=== PATIENT | female | born 1940 | race African-American/Black ===

== ENCOUNTER → 2016-05-24 | Outpatient (CLI) | payer OTHER ==
[2014-09-17 06:19] VITALS: BP 116/67
[~2016-05-24] MED LIST: ASCO500T2 PO; ASPI325T4 PO; CELE200C PO; CHOL100013 PO; FERR-26 PO; LISI1TAB7 PO; METF500T4 PO; MULT-460 PO; NIFE30TA17 PO; TRAM50TA PO; TRIA15OI9 TP; WARF5TAB7 PO
--- NOTE | 2016-05-24 10:11 | KCIC ---
PROCEDURE Complete renal ultrasound. HISTORY Renal failure. TECHNIQUE Real-time ultrasound imaging of the kidneys and the bladder is performed. COMPARISON None. FINDINGS Visualized abdominal aorta is normal in caliber, the proximal abdominal aorta is obscured. The IVC is patent. The bladder is not well distended, patient recently voided. Ureteral jets are not identified. The right kidney measures 9.7 cm in length as does the left kidney. Normal appearance of the kidneys. No hydronephrosis. Bilateral resistive indices are normal. IMPRESSION Atrophic kidneys. No hydronephrosis. Electronically signed by: Chidi Milner MD (May 24, 2016 10:10:08)
== END | disposition home or self-care (01) ==
LOC: KCIC US 08:43
PROVIDERS: ATTEND Internal Medicine Cardiovascular Disease
DX: N19 Unspecified kidney failure (principal); N26.1 Atrophy of kidney (terminal)
CPT/HCPCS: 76770

== ENCOUNTER → 2017-05-08 | Outpatient (CLI) | payer OTHER | END | disposition home or self-care (01) | LOC: US 15:00 | DX: I65.23 Occlusion and stenosis of bilateral carotid arteries (principal) | CPT/HCPCS: 93880 ==

== ENCOUNTER → 2018-05-28 | Outpatient (CLI) | payer OTHER ==
[2014-09-17 06:19] VITALS: BP 116/67
[~2018-05-28] MED LIST changes: -ASPI325T4 PO; +ASPI325T8 PO; -FERR-26 PO; +FERR325T14 PO; +METF500T16 PO; -METF500T4 PO; +WARF-31 PO; -WARF5TAB7 PO
--- NOTE | 2018-05-28 10:13 | CARD ---
MR#: [id number] Date of Study: 05/28/2018 Ordering Physician: NAINA OQUENDO, Referring Physician: NAINA OQUENDO, Tech: Meredith Marino [facility] APPROVED REPORT EXAM: Two-dimensional and M-mode echocardiogram with Doppler and color Doppler. Other Information Quality : AverageHR: 68bpm Rhythm : Atrial Fibrillation INDICATION CAD 2D DIMENSIONS RVDd2.8 (2.9-3.5cm)Left Atrium(2D)6.1 (1.6-4.0cm) IVSd1.1 (0.7-1.1cm)Aortic Root(2D)2.9 (2.0-3.7cm) LVDd4.5 (3.9-5.9cm)LVOT Diameter1.8 (1.8-2.4cm) PWd1.3 (0.7-1.1cm)LVDs3.1 (2.5-4.0cm) FS (%) 30.2 %SV52.3 ml LVEF(%)57.7 (>50%) M-Mode DIMENSIONS Left Atrium(MM)6.25 (2.5-4.0cm)Aortic Root3.02 (2.2-3.7cm) Aortic Valve AoV Peak Mikal.116.3cm/sAoV VTI21.3cm AO Peak GR.5.4mmHgLVOT Peak Mikal.71.9cm/s AO Mean GR.2mmHgAVA (VMAX)1.66cm2 RADHA (VTI)1.70cm2 Mitral Valve MV E Dmiwcizs697.1cm/sMV DECEL OPFM759pb MV A Sepnbqkh12.6cm/sE/A Ratio5.7 Pulmonary Valve PV Peak Ouyrcpbr52.7cm/s Tricuspid Valve TR P. Qkbswjar082mf/sRAP YXFYPJRK21jhKt TR Peak Gr.68iyHjBKCN28aoVi LEFT VENTRICLE The left ventricle is normal size. There is mild concentric left ventricular hypertrophy. The left ve ntricular systolic function is normal and the ejection fraction is within normal range. The Ejection Fraction is 55-60%. There is normal LV segmental wall motion. Tissue Doppler imaging reveals at least moderate left ventricular diastolic dysfunction. No left ventricle thrombus noted on this study. RIGHT VENTRICLE The right ventricle is normal size. There is normal right ventricular wall thickness. The right ventr icular systolic function is normal. ATRIA The left atrium is severely dilated. The right atrium is severely dilated. The interatrial septum is intact with no evidence for an atrial septal defect or patent foramen ovale as noted on 2-D or Dopple r imaging. AORTIC VALVE The aortic valve is mildly calcified. The aortic valve is trileaflet. Doppler and Color Flow revealed no significant aortic regurgitation. There is no significant aortic valvular stenosis. There is no a ortic valvular vegetation. MITRAL VALVE The mitral valve is thickened but opens well. There is no evidence of mitral valve prolapse. There is no mitral valve stenosis. Doppler and Color-flow revealed moderate mitral regurgitation. TRICUSPID VALVE The tricuspid valve is normal in structure and function. Doppler and Color Flow revealed mild to mode rate tricuspid regurgitation. There is moderate pulmonary hypertension. The PA pressure was estimated at 60 mmHg. There is no tricuspid valve prolapse or vegetation. There is no tricuspid valve stenosis . PULMONIC VALVE The pulmonary valve is normal in structure and function. Doppler and Color Flow revealed no pulmonic valvular regurgitation. There is no pulmonic valvular stenosis. GREAT VESSELS The aortic root is normal in size. The ascending aorta is normal in size. The IVC is dilated and uday apses <50% with inspiration. PERICARDIAL EFFUSION There is no evidence of significant pericardial effusion. Critical Notification Critical Value: No <Conclusion> The left ventricular systolic function is normal and the ejection fraction is within normal range. Th e Ejection Fraction is 55-60%. Severe biatrial enlargement with moderate concentric LVH and RVH suggestive of infiltrative disease v ersus severe diastolic dysfunction. Doppler and Color-flow revealed moderate mitral regurgitation. Doppler and Color Flow revealed mild to moderate tricuspid regurgitation. There is moderate pulmonary hypertension. The PA pressure was estimated at 60 mmHg. The IVC is dilated and collapses <50% with inspiration. Signed by : Naina Oquendo, Electronically Approved : 05/28/2018 10:12:41
--- NOTE | 2018-05-28 10:21 | RAD ---
MR#: [id number] Date of Study: 05/28/2018 Ordering Physician: NAINA OQUENDO, Referring Physician: NAINA OQUENDO, Tech: JOHN Mejia, RDMS, RTR APPROVED REPORT Patient Location: OUT-PATIENT Laterality:Bilateral Risk Factors Hypertension: Diabetes PAD Doppler Spectral Velocity Analysis Right Left pCCA 78/23 cm/spCCA 31/6 cm/s mCCA 69/17 cm/smCCA 24/7 cm/s dCCA 63/15 cm/sdCCA 26/5 cm/s ECA 70/ cm/sECA 95/ cm/s pICA 62/19 cm/spICA Maureen 69/23 cm/smICA dICA 68/24 cm/sdICA Vert. 47/ cm/sVert. 60/ cm/s ICA/CCA 0.88ICA/CCA Findings Murillo scale images of the right common, external and internal vessels demonstrates mild intimal hyperp lasia without significant obstructive plaque. Spectral waveforms in the ICA are within normal limits and demonstrate normal ICA/CCA ratios. The right vertebral velocities are antegrade and normal. Overa ll, 0 to less than 50% stenosis on the right side. Murillo scale images of the left common carotid and external carotid vessels demonstrates mild diffuse p laque. The left ICA has a large plaque burden at the ostium, essentially occluding the vessel. Spectr al waveforms are blunted in the LCCA but no high grade stenosis is noted. The left ICA is occluded. T he left vertebral velocity is within normal limits and antegrade. Critical Notification Critical Value: No <Conclusion> 1. No significant right sided carotid disease. 2. Left ICA occlusion. 3. Antegrade vertebral velocities bilaterally. Signed by : Naina Oquendo, Electronically Approved : 05/28/2018 10:21:26
== END | disposition home or self-care (01) ==
LOC: ECHO 08:39
PROVIDERS: ATTEND Internal Medicine Cardiovascular Disease
DX: I08.3 Combined rheumatic disorders of mitral, aortic and tricuspid valves (principal); I65.29 Occlusion and stenosis of unspecified carotid artery; I11.9 Hypertensive heart disease without heart failure; I48.91 Unspecified atrial fibrillation; I25.10 Atherosclerotic heart disease of native coronary artery without angina pectoris; I73.9 Peripheral vascular disease, unspecified; E11.9 Type 2 diabetes mellitus without complications
CPT/HCPCS: 93306; 93880

== ENCOUNTER → 2020-05-20 | Outpatient (CLI) | payer MEDICARE ==
[2014-09-17 06:19] VITALS: BP 116/67
[~2020-05-20] MED LIST changes: -ASCO500T2 PO; +ASCO500T4 PO; +LISI1TAB20 PO; -LISI1TAB7 PO; -NIFE30TA17 PO; +NIFE30TA95 PO
--- NOTE | 2020-05-20 16:21 | CARD ---
MR#: [id number] Date of Study: 05/20/2020 Ordering Physician: NAINA OQUENDO, Referring Physician: NAINA OQUENDO, Tech: Nika Fowler [facility] APPROVED REPORT EXAM: Two-dimensional and M-mode echocardiogram with Doppler and color Doppler. Other Information Quality : Good Rhythm : Atrial Fibrillation INDICATION Congestive Heart Failure 2D DIMENSIONS RVDd2.7 (2.9-3.5cm)Left Atrium(2D)4.8 (1.6-4.0cm) IVSd1.1 (0.7-1.1cm)Aortic Root(2D)2.7 (2.0-3.7cm) LVDd4.6 (3.9-5.9cm)LVOT Diameter2.0 (1.8-2.4cm) PWd0.9 (0.7-1.1cm)LVDs3.4 (2.5-4.0cm) FS (%) 26.8 %SV51.0 ml LVEF(%)52.4 (>50%) Aortic Valve AoV Peak Mikal.114.9cm/sAoV VTI20.4cm AO Peak GR.5.3mmHgLVOT Peak Mikal.79.2cm/s LVOT VTI 15.92cmAO Mean GR.3mmHg RADHA (VMAX)1.80vi3KAO (VTI)2.56cm2 Mitral Valve MV E Zrwgnmxk11.1cm/sMV DECEL NCAP478gg MV GGX56wuLST (PHT)5.51cm2 TDI E/Lateral E'17.9E/Medial E'10.8 Tricuspid Valve TR P. Rihyjogo891lt/sRAP YDGYJZYJ6zeUj TR Peak Gr.39foCdVKCO99taEd Pulmonary Vein S1 Bqdnsxwg75.9cm/sD2 Hkohefil68.4cm/s LEFT VENTRICLE The left ventricle is normal size. There is normal left ventricular wall thickness. Left ventricle sy stolic function is normal. The Ejection Fraction is 55%. There is normal LV segmental wall motion. RIGHT VENTRICLE The right ventricle is normal size. The right ventricular systolic function is normal. ATRIA The left atrium is moderately dilated. The right atrium size is moderately dilated. The interatrial s eptum is intact with no evidence for an atrial septal defect or patent foramen ovale as noted on 2-D or Doppler imaging. AORTIC VALVE The aortic valve is mildly thickened but opens well. Doppler and Color Flow revealed no significant a ortic regurgitation. There is no significant aortic valvular stenosis. MITRAL VALVE The mitral valve is calcified but opens well. There is no evidence of mitral valve prolapse. There is no mitral valve stenosis. Doppler and Color-flow revealed moderate mitral regurgitation. TRICUSPID VALVE The tricuspid valve is normal in structure and function. Doppler and Color Flow revealed mild tricusp id regurgitation. There is mild pulmonary hypertension. The PA pressure was estimated at 37 mmHg. The re is no tricuspid valve stenosis. PULMONIC VALVE The pulmonic valve is not well visualized. Doppler and Color Flow revealed trace pulmonic valvular re gurgitation. There is no pulmonic valvular stenosis. GREAT VESSELS The aortic root is normal in size. The ascending aorta is normal in size. The IVC is dilated and uday apses >50% with inspiration. PERICARDIAL EFFUSION There is no evidence of significant pericardial effusion. Critical Notification Critical Value: No <Conclusion> Left ventricle systolic function is normal. The Ejection Fraction is 55%. There is normal LV segmental wall motion. Moderate biatrial dilation. Moderate mitral regurgitation. Mild tricuspid regurgitation. The PA pressure was estimated at 37 mmHg. There is no evidence of significant pericardial effusion. Signed by : Mario Hayes, Electronically Approved : 05/20/2020 16:21:34
== END ==
LOC: ECHO 09:40
PROVIDERS: ATTEND Internal Medicine Cardiovascular Disease
DX: I08.1 Rheumatic disorders of both mitral and tricuspid valves (principal); I50.30 Unspecified diastolic (congestive) heart failure
CPT/HCPCS: 93306

== ENCOUNTER 2021-04-15 16:16 | Inpatient (IN) | payer MEDICARE ==
[~2021-04-15] VITALS: Ht 172.7 cm; Wt 66.1 kg
[~2021-04-15 16:16] MED LIST changes: -LISI1TAB20 PO; +LISI1TAB39 PO
[2021-04-15 17:05] VITALS: BP 158/88
--- NOTE | 2021-04-15 18:10 | EKG ---
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: [id number] : 1940 Requested By: JONNY QUIROZ Order Number: [id number] Reading MD: Measurements Intervals [place] Rate: 89 P: 0 LA: 310 QRS: 11 QRSD: 82 T: 170 QT: 354 QTc: 432 Interpretive Statements SINUS RHYTHM ATRIAL PREMATURE COMPLEX(ES) PROLONGED LA INTERVAL LVH WITH REPOLARIZATION ABNORMALITY ABNORMAL ECG RI6.02 Compared to ECG 08/31/2014 13:31:30 First degree AV block now present Left ventricular hypertrophy now present Early repolarization now present Atrial fibrillation no longer present Left-axis deviation no longer present Possible ischemia no longer present T-wave abnormality no longer present
[2021-04-15 19:00] VITALS: BP 109/57
[2021-04-15 19:13] LABS: HEMATOCRIT 43.3 % (36.0-47.0); HEMOGLOBIN 14.1 g/dL (12.0-15.5); RED BLOOD COUNT 4.53 x10^6/uL (3.50-5.40); RED CELL DISTRIBUTION WIDTH 14.5 % (11.5-14.5); WHITE BLOOD COUNT 5.9 x10^3/uL (4.0-11.0)
[2021-04-15 19:19] LABS: ALBUMIN 3.3 g/dL (3.4-5.0); ALBUMIN/GLOBULIN RATIO 0.8 (1.0-1.7); CALCIUM 9.4 mg/dL (8.5-10.1); CREATININE 1.4 mg/dL (0.6-1.0); GFR 43.6; POTASSIUM 4.3 mmol/L (3.5-5.1); TOTAL BILIRUBIN 0.8 mg/dL (0.2-1.0); TOTAL PROTEIN 7.6 g/dL (6.4-8.2)
[2021-04-15] MEDS ORDERED: ATOR10TA60 PO (22:14)
[2021-04-15] MEDS ORDERED: METO-239 PO (22:14)
[2021-04-15] MEDS ORDERED: SPIR25TA5 PO (22:14)
[2021-04-15] MEDS ORDERED: AMLO2.5T5 PO (22:14)
[2021-04-15] MEDS ORDERED: APIX2.5T PO (22:14)
[2021-04-15] MEDS ORDERED: AMOX500C PO (22:14)
[2021-04-15 23:03] VITALS: BP 131/78
[2021-04-15] MEDS: SPIRONOLACTONE 25 MG TABLET PO SCH (23:48)
[2021-04-16] VITALS (7 sets, daily range): BP systolic 132–176; BP diastolic 79–119
[2021-04-16] MEDS: IPRATROPIUM BROMIDE 0.5 MG/2.5 ML NEBU. NEB SCH ×4 (08:00→19:51)
--- NOTE | 2021-04-16 08:08 | CONS ---
DATE OF CONSULTATION: 04/16/2021 REASON FOR CONSULTATION: I was asked to see this 80-year-old lady for acute respiratory failure, right pleural effusion. HISTORY OF PRESENT ILLNESS: She has a history of 63-joru-hdts smoking, quit smoking about 2 years ago. She has had daily cough for a long time, has not had a pulmonary function tests. Her primary doctor told her she has COPD, but she is not on any inhalers. She is a poor historian. She states that she has lost weight, about 10 pounds over the past few months. She has had shortness of breath for the past few days. She has atrial fibrillation, is on Eliquis, last dose was yesterday. She denies chest pain, fever or chills. She has had occasional wheezing. PAST MEDICAL HISTORY: Atrial fibrillation, on Eliquis; diastolic congestive heart failure, diabetes mellitus, hypertension, coronary artery disease and scoliosis, osteoporosis, arthritis, cervical cancer, left breast lumpectomy, hysterectomy. ALLERGIES: No known drug allergies. MEDICATIONS: Currently, she is on vitamin D, Norvasc, Toprol-XL, Lipitor, spironolactone. SOCIAL HISTORY: History of 19-jkot-likv smoking, quit smoking 2 years ago. FAMILY HISTORY: Hypertension. REVIEW OF SYSTEMS: As mentioned as above, she has not had lower extremity edema. Other systems otherwise negative. PHYSICAL EXAMINATION: GENERAL: This is an elderly, thin lady. VITAL SIGNS: Her O2 saturation on 4 liters of oxygen is 99%, respiratory rate 20, heart rate 85, blood pressure 139/85, temperature 97.5. HEENT: Normocephalic, atraumatic. Throat is clear. Nose is clear. NECK: There is no JVD, lymphadenopathy or thyromegaly. CARDIOVASCULAR: Irregularly irregular rhythm. Distant heart sounds. PMI is nondisplaced. CHEST: Inspection is normal. LUNGS: There are bilateral diminished breath sounds, dullness at the right base, a few end expiratory wheezing. ABDOMEN: Soft. Bowel sounds are good. There is no mass. EXTREMITIES: There is no edema. LYMPHATICS: There is no lymphadenopathy. NEUROLOGIC: She is alert. SKIN: Chronic changes. LABORATORY DATA: I reviewed the following lab data: Chest x-ray shows cardiomegaly, right large pleural effusion, might be loculated. WBC 5.9, hemoglobin 14.1, platelet 209. Sodium 142, potassium 4.3, chloride 104, CO2 of 26, BUN 32, creatinine 1.4. IMPRESSION: 1. Acute respiratory failure secondary to large right pleural effusion, chronic obstructive pulmonary disease with acute exacerbation, rule out acute diastolic congestive heart failure. 2. Abnormal chest x-ray. 3. Right large pleural effusion, suspected loculated, so I suspect she has had it for a while. She denies any symptoms of recent pulmonary infection. Differential diagnosis including inflammatory versus infectious versus malignancy. 4. Ex-heavy smoker, suspect has significant chronic obstructive pulmonary disease with acute exacerbation. 5. Chronic diastolic congestive heart failure. 6. Atrial fibrillation, on Eliquis. 7. Hypertension. 8. Diabetes mellitus. 9. Weight loss? etiology. Need to rule out malignancy. PLAN AND RECOMMENDATIONS: 1. Titrate FiO2 to keep O2 saturation 92%. 2. Start bronchodilator Atrovent only as she has atrial fibrillation. 3. Start Solu-Medrol 40 mg IV every 12 hours. 4. She has been on Eliquis. We need to wait 2-3 days before her thoracentesis. We will ask Interventional Radiology to do ultrasound-guided thoracentesis. We will send for cytology, Gram stain and culture, AFB smear and culture, fungal smear and culture, cell count with differential, LDH, total protein, glucose. We will do LDH, total protein, glucose at the same time. 5. Thoracentesis was discussed with the patient, she is agreeable. 6. Continue home medication. 7. The findings and recommendations were discussed with the patient. She understood and agreed to proceed with the plan. I have answered all of her questions. Thank you very much for allowing me to participate in care of this very nice lady. MELANIE DR: Abimael TID: [id number]
[2021-04-16] MEDS ORDERED: SPIRONOLACTONE 25 MG TABLET PO SCH (09:00)
--- NOTE | 2021-04-16 10:08 | PDOC ---
Provider Note Date of Service: DATE: 04/16/21 TIME: 10:06 Provider Note [id number] Justifications for Admission Other Justification JONNY QUIROZ MD Apr 16, 2021 10:07
[2021-04-16] MEDS: ATORVASTATIN CALCIUM 10 MG TABLET. PO SCH (10:20)
[2021-04-16] MEDS: METOPROLOL SUCC 24HR ER 25 MG TAB.ER.24H. PO SCH (10:20)
[2021-04-16] MEDS: CHOLECALCIFEROL (VITAMIN D3) 1,000 UNIT TABLET PO SCH (10:20)
[2021-04-16] MEDS: methylPREDNISolone SOD SUCC PF 40 MG/ML VIAL. IV SCH ×2 (10:22→20:48)
--- NOTE | 2021-04-16 13:01 | RAD ---
EXAM: Chest, single view. HISTORY: Dyspnea. Hypoxia. COMPARISON: None. FINDINGS: A frontal view of the chest is obtained. There is a large right pleural effusion with diffu se lower lobe predominant right lung infiltrate. There is suspected left lower lobe interstitial infi ltrate or chronic interstitial changes. There is no pneumothorax. The heart is normal in size for por table technique. IMPRESSION: 1. Large right pleural effusion with diffuse lower lobe predominant right lung infiltrate. Follow-up to confirm resolution and exclude an underlying neoplasm. 2. Left lower lobe interstitial infiltrate or chronic interstitial changes. Electronically signed by: Ashley Pate MD (04/16/2021 12:59 PM) [id number]
[2021-04-16] MEDS: SPIRONOLACTONE 25 MG TABLET PO SCH (20:48)
[2021-04-16] MEDS: LORazepam 0.5 MG TABLET PO PRN (21:46)
[2021-04-17 03:00] VITALS: BP 152/82
--- NOTE | 2021-04-17 03:50 | RAD ---
CT chest without contrast PQRS statement: CT scans at this facility use dose reduction including either automated exposure cont rol, iterative reconstructions, and /or weight based radiation dosing via mA and kV modification when appropriate to reduce radiation dose to as low as reasonably achievable. HISTORY: Right pleural effusion. Right thoracic mass. COMPARISON: Chest x-ray April 15, 2021 FINDINGS: Moderate cardiomegaly. Calcified plaque of the aorta and coronary arteries. Hypodensity of the blood pool may be due to anemia. There is a large right pleural effusion with nearly complete col lapse of the right lung there is some mild residual expansion/aeration of the right upper lobe which is predominantly collapsed, with complete collapse of right middle and lower lobes, there is irregula r soft tissue density about the collapsed segments of the right middle and lower lobes raises the pos sibility of underlying mass. There is inversion of the right diaphragm by the pleural effusion as wel l as mild leftward shift of heart and mediastinum. There is mediastinal adenopathy with several large lymph nodes measuring up to 5 cm at the prevascular space as well as smaller right supraclavicular n anel adenopathy measuring up to 2 cm. Centrilobular pulmonary emphysema. At the left lower lobe there is a subpleural parenchymal solid 2.7 cm nodule with fine spiculations. Bones are unremarkable. IMPRESSION: 1. Large malignant right pleural effusion with near-complete collapse of the right lung, with mild re sidual expansion/aeration of the right upper lobe. The size of the effusion has increased since the p rior chest x-ray from one day ago with increased collapse of the right lung since the prior exam. The re is mild leftward midline shift of the heart and mediastinum and inversion of the right diaphragm d ue to the large pleural effusion. 2. Enlarged mediastinal adenopathy. 3. 2.7 cm left lower lobe solid nodule with fine spiculations typical of a malignant nodule, this cou ld represent a synchronous primary lung malignancy or a metastatic nodule. 4. Other incidental findings as described above. Electronically signed by: Bryan Teixeira MD (04/17/2021 3:47 AM) [facility]
--- NOTE | 2021-04-17 06:35 | PDOC ---
PULMONARY PROGRESS NOTES DATE: 04/17/21 TIME: 06:34 Subjective on 02 has sob has occ cough Vitals Vital Signs Date Time Temp Pulse Resp B/P (MAP) Pulse Ox O2 Delivery O2 Flow Rate FiO2 04/17/21 03:00 97.9 88 22 152/82 (105) 95 Nasal Cannula 6.0 97.9 ROS: No Nausea General: Alert HEENT: Other (nc at ) Lungs: Other (r diminished dull l a few end exp wheezing ) Cardiovascular: Other (irreg irreg ) Abdomen: Soft Neuro Exam: Alert Extremities: No Edema Skin: Warm Labs Laboratory Tests Test 04/15/21 18:30 White Blood Count 5.9 x10^3/uL (4.0-11.0) Red Blood Count 4.53 x10^6/uL (3.50-5.40) Hemoglobin 14.1 g/dL (12.0-15.5) Hematocrit 43.3 % (36.0-47.0) Mean Corpuscular Volume 96 fL (79-100) Mean Corpuscular Hemoglobin 31 pg (25-35) Mean Corpuscular Hemoglobin Concent 33 g/dL (31-37) Red Cell Distribution Width 14.5 % (11.5-14.5) Platelet Count 209 x10^3/uL (140-400) Sodium Level 142 mmol/L (136-145) Potassium Level 4.3 mmol/L (3.5-5.1) Chloride Level 104 mmol/L (98-107) Carbon Dioxide Level 26 mmol/L (21-32) Anion Gap 12 (6-14) Blood Urea Nitrogen 32 mg/dL (7-20) Creatinine 1.4 mg/dL (0.6-1.0) Estimated GFR (Cockcroft-Gault) 43.6 BUN/Creatinine Ratio 23 (6-20) Glucose Level 168 mg/dL (70-99) Calcium Level 9.4 mg/dL (8.5-10.1) Total Bilirubin 0.8 mg/dL (0.2-1.0) Aspartate Amino Transf (AST/SGOT) 33 U/L (15-37) Alanine Aminotransferase (ALT/SGPT) 35 U/L (14-59) Alkaline Phosphatase 92 U/L (46-116) Total Protein 7.6 g/dL (6.4-8.2) Albumin 3.3 g/dL (3.4-5.0) Albumin/Globulin Ratio 0.8 (1.0-1.7) Medications Active Scripts Medications Dose Route/Sig Max Daily Dose Days Date Category Spironolactone 25 Mg Tablet 1 Tab PO DAILY 04/15/21 Reported Eliquis (Apixaban) 2.5 Mg Tablet 1 Tab PO BID 04/15/21 Reported Metoprolol Succinate ( Xl ) (Metoprolol Succinate) 25 Mg Tab.er.24h 1 Tab PO DAILY 04/15/21 Reported Amoxicillin 500 Mg Capsule 4 Cap PO ONCE PRN 04/15/21 Reported Atorvastatin Calcium 10 Mg Tablet 1 Tab PO DAILY 04/15/21 Reported Amlodipine Besylate 2.5 Mg Tablet 1 Tab PO DAILY 04/15/21 Reported Vitamin D (Cholecalciferol (Vitamin D3)) 1,000 Unit Capsule 2,000 Unit PO DAILY 08/27/[address] 1. Large malignant right pleural effusion with near-complete collapse of the right lung, with mild residual expansion/aeration of the right upper lobe. The size of the effusion has increased since the prior chest x-ray from one day ago with increased collapse of the right lung since the prior exam. There is mild leftward midline shift of the heart and mediastinum and inversion of the right diaphragm due to the large pleural effusion. 2. Enlarged mediastinal adenopathy. 3. 2.7 cm left lower lobe solid nodule with fine spiculations typical of a malignant nodule, this could represent a synchronous primary lung malignancy or a metastatic nodule. Impression . IMPRESSION: 1. Acute respiratory failure secondary to large right pleural effusion, chronic obstructive pulmonary disease with acute exacerbation, rule out acute diastolic congestive heart failure. 2. Abnormal chest x-ray/ct of chest suspect malignancy. 3. Right large pleural effusion, suspect loculated, so I suspect she has had it for a while. She denies any symptoms of recent pulmonary infection. Differential diagnosis including malignancy (big concern), inflammatory versus infectious 4. Ex-heavy smoker, suspect has significant chronic obstructive pulmonary disease with acute exacerbation. 5. Chronic diastolic congestive heart failure. 6. Atrial fibrillation, on Eliquis. 7. Hypertension. 8. Diabetes mellitus. 9. Weight loss suspect 2/2 malignancy. Plan . PLAN AND RECOMMENDATIONS: 1. Titrate FiO2 to keep O2 saturation 92%. 2. bronchodilator Atrovent only as she has atrial fibrillation. 3. Solu-Medrol 40 mg IV every 12 hours. 4. She has been on Eliquis. We need to wait 2-3 days before her thoracentesis. We will ask Interventional Radiology to do ultrasound-guided thoracentesis in am. We will send for cytology, Gram stain and culture, AFB smear and culture, fungal smear and culture, cell count with differential, LDH, total protein, glucose. We will do LDH, total protein, glucose at the same time. 5. Thoracentesis was discussed with the patient, she is agreeable. 6. Continue home medication. 7. was planning to order ct after thoracentesis but ordered by primary reviewed, highly suspicious for malignancy The findings and recommendations were discussed with the patient, rn . DEBORAH COLVIN MD Apr 17, 2021 06:35
[2021-04-17 07:00] VITALS: BP 117/61
[2021-04-17] MEDS: IPRATROPIUM BROMIDE 0.5 MG/2.5 ML NEBU. NEB SCH ×4 (07:53→20:45)
[2021-04-17] MEDS: CHOLECALCIFEROL (VITAMIN D3) 1,000 UNIT TABLET PO SCH (08:35)
[2021-04-17] MEDS: methylPREDNISolone SOD SUCC PF 40 MG/ML VIAL. IV SCH ×2 (08:35→20:42)
[2021-04-17] MEDS: ATORVASTATIN CALCIUM 10 MG TABLET. PO SCH (08:36)
[2021-04-17] MEDS: METOPROLOL SUCC 24HR ER 25 MG TAB.ER.24H. PO SCH (08:36)
--- NOTE | 2021-04-17 10:35 | PDOC ---
Provider Note Date of Service: DATE: 04/17/21 TIME: 10:[address] results conform susp of cancer, L lung mass also- d/w her and son as likely dx, she wishes to be a dnr and order written- thoracentesis next for dx, relief Justifications for Admission Other Justification JONNY QUIROZ MD Apr 17, 2021 10:35
[2021-04-17 11:00] VITALS: BP 111/87
[2021-04-17 12:53] LABS: ALBUMIN/GLOBULIN RATIO 0.7 (1.0-1.7); CALCIUM 9.2 mg/dL (8.5-10.1); CREATININE 1.2 mg/dL (0.6-1.0); MAGNESIUM 2.1 mg/dL (1.8-2.4); POTASSIUM 4.8 mmol/L (3.5-5.1); TOTAL BILIRUBIN 0.7 mg/dL (0.2-1.0); TOTAL PROTEIN 7.2 g/dL (6.4-8.2)
[2021-04-17 13:07] LABS: BASO % 0 % (0-3); EOS % 0 % (0-3); HEMOGLOBIN 13.4 g/dL (12.0-15.5); LYMPH # 0.8 x10^3/uL (1.0-4.8); LYMPH % 10 % (24-48); MEAN CORPUSCULAR HEMOGLOBIN 30 pg (25-35); MEAN CORPUSCULAR HGB CONC 32 g/dL (31-37); MEAN CORPUSCULAR VOLUME 95 fL (79-100); MONO # 0.5 x10^3/uL (0.0-1.1); MONO % 5 % (0-9); NEUT # 7.5 x10^3/uL (1.8-7.7); NEUT % 85 % (31-73); PLATELET COUNT 221 x10^3/uL (140-400); RED BLOOD COUNT 4.44 x10^6/uL (3.50-5.40); RED CELL DISTRIBUTION WIDTH 14.5 % (11.5-14.5); WHITE BLOOD COUNT 8.8 x10^3/uL (4.0-11.0)
[2021-04-17 15:00] VITALS: BP 129/78
--- NOTE | 2021-04-17 15:08 | PDOC2 ---
CONSULT Date of Consult Date of Consult DATE: 04/17/21 TIME: 15:02 Reason for Consult Reason for Consult: Atrial fibrillation. Shortness of breath Referring Physician Referring Physician: Dr. Hodge Identification/Chief Complaint Chief Complaint Shortness of breath Source Source: Chart review, Patient History of Present Illness Reason for Visit: The patient is an 80-year-old female admitted with episodes of increasing shor tness of breath. She has a history of chronic atrial fibrillation as well as hypertension, coronary artery disease, COPD and diabetes. Work-up is included a CT chest scan that showed a large right pleural effusion with near collapse of her lung. There is also a 2.7 cm left lower lobe solid nodule. The patient has been treated for acute respiratory failure and possible diastolic heart failure. She is feeling mildly better today. Past Medical History Cardiovascular: AFIB, CAD, CHF, HTN Pulmonary: COPD Heme/Onc: Other (Solid lung nodule as above. Cervical cancer) Endocrine: Diabetes Past Surgical History Past Surgical History: Hysterectomy, Other (Lumpectomy) Family History Family History: Hypertension Social History Quit ALCOHOL: none Current Medications Current Medications Current Medications Atorvastatin Calcium (Lipitor) 10 mg DAILY PO Last administered on 04/17/21at 08:36; Start 04/16/21 at 09:00 Metoprolol Succinate (Toprol Xl) 25 mg DAILY PO Last administered on 04/17/21at 08:36; Start 04/16/21 at 09:00 Spironolactone (Aldactone) 25 mg DAILY PO ; Start 04/16/21 at 09:00; Stop 04/15/21 at 23:00; Status DC Amlodipine Besylate (Norvasc) 2.5 mg DAILY PO Last administered on 04/16/21at 10:22; Start 04/16/21 at 09:00 Vitamin D (Vitamin D3) 2,000 unit DAILY PO Last administered on 04/17/21 08:35; Start 04/16/21 at 09:00 Spironolactone (Aldactone) 25 mg HS PO Last administered on 04/16/21at 20:48; Start 04/15/21 at 23:00 Ipratropium [place] (Atrovent) 0.5 mg RTQID NEB Last administered on 04/17/21at 11:42; Start 04/16/21 at 08:00 Methylprednisolone Sodium Succinate (SOLU-Medrol 40MG VIAL) 40 mg Q12HR IV Last administered on 04/17/21at 08:35; Start 04/16/21 at 09:00 Lorazepam (Ativan) 0.5 mg PRN Q8HRS PRN PO ANXIETY / AGITATION Last administered on 04/16/21at 21:46; Start 04/16/21 at 10:30 Active Scripts Active Reported Spironolactone 25 Mg Tablet 1 Tab PO DAILY Eliquis (Apixaban) 2.5 Mg Tablet 1 Tab PO BID Metoprolol Succinate ( Xl ) (Metoprolol Succinate) 25 Mg Tab.er.24h 1 Tab PO DAILY Amoxicillin 500 Mg Capsule 4 Cap PO ONCE PRN Atorvastatin Calcium 10 Mg Tablet 1 Tab PO DAILY Amlodipine Besylate 2.5 Mg Tablet 1 Tab PO DAILY Vitamin D (Cholecalciferol (Vitamin D3)) 1,000 Unit Capsule 2,000 Unit PO DAILY Allergies Allergies: Coded Allergies: latex (Verified Allergy, Severe, Rash, 09/15/14) ROS General: YES: Fatigue Respiratory: YES: Shortness of breath, SOB with excertion Physical Exam General: mild distress Lungs: Other (Decreased breath sounds right greater than left) Heart: Other (Irregularly irregular) Abdomen: Normal bowel sounds, Other Vitals VITALS Vital Signs Date Time Temp Pulse Resp B/P (MAP) Pulse Ox O2 Delivery O2 Flow Rate FiO2 04/17/21 11:43 95 Nasal Cannula 6.0 04/17/21 11:00 97.4 91 24 111/87 (95) 97.4 Labs Labs Laboratory Tests Test 04/15/21 18:30 04/17/21 06:45 04/17/21 12:15 White Blood Count 5.9 x10^3/uL (4.0-11.0) 8.8 x10^3/uL (4.0-11.0) Red Blood Count 4.53 x10^6/uL (3.50-5.40) 4.44 x10^6/uL (3.50-5.40) Hemoglobin 14.1 g/dL (12.0-15.5) 13.4 g/dL (12.0-15.5) Hematocrit 43.3 % (36.0-47.0) 42.0 % (36.0-47.0) Mean Corpuscular Volume 96 fL (79-100) 95 fL (79-100) Mean Corpuscular Hemoglobin 31 pg (25-35) 30 pg (25-35) Mean Corpuscular Hemoglobin Concent 33 g/dL (31-37) 32 g/dL (31-37) Red Cell Distribution Width 14.5 % (11.5-14.5) 14.5 % (11.5-14.5) Platelet Count 209 x10^3/uL (140-400) 221 x10^3/uL (140-400) Sodium Level 142 mmol/L (136-145) 139 mmol/L (136-145) Potassium Level 4.3 mmol/L (3.5-5.1) 4.8 mmol/L (3.5-5.1) Chloride Level 104 mmol/L (98-107) 103 mmol/L (98-107) Carbon Dioxide Level 26 mmol/L (21-32) 23 mmol/L (21-32) Anion Gap 12 (6-14) 13 (6-14) Blood Urea Nitrogen 32 mg/dL (7-20) 32 mg/dL (7-20) Creatinine 1.4 mg/dL (0.6-1.0) 1.2 mg/dL (0.6-1.0) Estimated GFR (Cockcroft-Gault) 43.6 52.0 BUN/Creatinine Ratio 23 (6-20) 27 (6-20) Glucose Level 168 mg/dL (70-99) 187 mg/dL (70-99) Calcium Level 9.4 mg/dL (8.5-10.1) 9.2 mg/dL (8.5-10.1) Total Bilirubin 0.8 mg/dL (0.2-1.0) 0.7 mg/dL (0.2-1.0) Aspartate Amino Transf (AST/SGOT) 33 U/L (15-37) 26 U/L (15-37) Alanine Aminotransferase (ALT/SGPT) 35 U/L (14-59) 35 U/L (14-59) Alkaline Phosphatase 92 U/L (46-116) 87 U/L (46-116) Total Protein 7.6 g/dL (6.4-8.2) 7.2 g/dL (6.4-8.2) Albumin 3.3 g/dL (3.4-5.0) 3.0 g/dL (3.4-5.0) Albumin/Globulin Ratio 0.8 (1.0-1.7) 0.7 (1.0-1.7) SARS-CoV-2 Antigen (Rapid) Negative (NEGATIVE) Neutrophils (%) (Auto) 85 % (31-73) Lymphocytes (%) (Auto) 10 % (24-48) Monocytes (%) (Auto) 5 % (0-9) Eosinophils (%) (Auto) 0 % (0-3) Basophils (%) (Auto) 0 % (0-3) Neutrophils # (Auto) 7.5 x10^3/uL (1.8-7.7) Lymphocytes # (Auto) 0.8 x10^3/uL (1.0-4.8) Monocytes # (Auto) 0.5 x10^3/uL (0.0-1.1) Eosinophils # (Auto) 0.0 x10^3/uL (0.0-0.7) Basophils # (Auto) 0.0 x10^3/uL (0.0-0.2) Magnesium Level 2.1 mg/dL (1.8-2.4) Laboratory Tests Test 04/17/21 06:45 04/17/21 12:15 SARS-CoV-2 Antigen (Rapid) Negative (NEGATIVE) White Blood Count 8.8 x10^3/uL (4.0-11.0) Red Blood Count 4.44 x10^6/uL (3.50-5.40) Hemoglobin 13.4 g/dL (12.0-15.5) Hematocrit 42.0 % (36.0-47.0) Mean Corpuscular Volume 95 fL (79-100) Mean Corpuscular Hemoglobin 30 pg (25-35) Mean Corpuscular Hemoglobin Concent 32 g/dL (31-37) Red Cell Distribution Width 14.5 % (11.5-14.5) Platelet Count 221 x10^3/uL (140-400) Neutrophils (%) (Auto) 85 % (31-73) Lymphocytes (%) (Auto) 10 % (24-48) Monocytes (%) (Auto) 5 % (0-9) Eosinophils (%) (Auto) 0 % (0-3) Basophils (%) (Auto) 0 % (0-3) Neutrophils # (Auto) 7.5 x10^3/uL (1.8-7.7) Lymphocytes # (Auto) 0.8 x10^3/uL (1.0-4.8) Monocytes # (Auto) 0.5 x10^3/uL (0.0-1.1) Eosinophils # (Auto) 0.0 x10^3/uL (0.0-0.7) Basophils # (Auto) 0.0 x10^3/uL (0.0-0.2) Sodium Level 139 mmol/L (136-145) Potassium Level 4.8 mmol/L (3.5-5.1) Chloride Level 103 mmol/L (98-107) Carbon Dioxide Level 23 mmol/L (21-32) Anion Gap 13 (6-14) Blood Urea Nitrogen 32 mg/dL (7-20) Creatinine 1.2 mg/dL (0.6-1.0) Estimated GFR (Cockcroft-Gault) 52.0 BUN/Creatinine Ratio 27 (6-20) Glucose Level 187 mg/dL (70-99) Calcium Level 9.2 mg/dL (8.5-10.1) Magnesium Level 2.1 mg/dL (1.8-2.4) Total Bilirubin 0.7 mg/dL (0.2-1.0) Aspartate Amino Transf (AST/SGOT) 26 U/L (15-37) Alanine Aminotransferase (ALT/SGPT) 35 U/L (14-59) Alkaline Phosphatase 87 U/L (46-116) Total Protein 7.2 g/dL (6.4-8.2) Albumin 3.0 g/dL (3.4-5.0) Albumin/Globulin Ratio 0.7 (1.0-1.7) Images Images Chest CT and chest x-ray as above Assessment/Plan Assessment/Plan 1. Acute respiratory failure. Patient has a large right-sided pleural effusion. She has been seen by the pulmonary service. She has been started on pulmonary medications and a thoracentesis of the right sided pleural effusion is planned. Eliquis is on hold. 2. Possible additional acute heart failure. We will check an echocardiogram. Continuing baseline medications excluding Eliquis. 3. Chronic atrial fibrillation. Rate is under reasonable control. Eliquis has been held pending thoracentesis. 4. Hypertension. History of hypertension. We will continue to monitor and adjust medications as needed. 5. Reported history of coronary artery disease. Will attempt to obtain old records. 6. Diabetes mellitus. As per the primary service. LESLIE YOUNG MD Apr 17, 2021 15:08
[2021-04-17 19:00] VITALS: BP 151/84
[2021-04-17] MEDS: SPIRONOLACTONE 25 MG TABLET PO SCH (20:42)
[2021-04-17] MEDS: LORazepam 0.5 MG TABLET PO PRN (20:42)
[2021-04-17 23:00] VITALS: BP 148/92
[2021-04-18] VITALS (8 sets, daily range): BP systolic 132–166; BP diastolic 62–87
[2021-04-18 07:29] LABS: TOTAL PROTEIN 7.3 g/dL (6.4-8.2)
--- NOTE | 2021-04-18 08:05 | PDOC ---
Provider Note Date of Service: DATE: 04/18/21 TIME: 08:04 Provider Note status same , for thoracentesis this am, then rad onc/onc consults but not likely able to take much chemorx Justifications for Admission Other Justification JONNY QUIROZ MD Apr 18, 2021 08:05
[2021-04-18] MEDS ORDERED: MORPHINE SULFATE 20 MG/ML CONC SOLUTION. SL PRN (08:15)
[2021-04-18] MEDS: IPRATROPIUM BROMIDE 0.5 MG/2.5 ML NEBU. NEB SCH ×4 (08:44→21:18)
[2021-04-18] MEDS: CHOLECALCIFEROL (VITAMIN D3) 1,000 UNIT TABLET PO SCH (09:00)
[2021-04-18] MEDS: ATORVASTATIN CALCIUM 10 MG TABLET. PO SCH (09:00)
--- NOTE | 2021-04-18 09:03 | HP ---
DATE OF SERVICE: 04/16/2021 ADMIT DATE: 04/15/2021 CHIEF COMPLAINT: Shortness of breath. HISTORY OF PRESENT ILLNESS: An 80-year-old white female with long tobacco history, but quit smoking several years ago and has been followed by us for cardiac issues and vascular issues. She has, in the last week, had increasing shortness of breath, wheezing and some cough, but denies sputum production, hemoptysis, fever, chills, COVID exposure or other complaints. Office evaluation showed saturation of 84%. Physical exam was consistent with dullness in the right chest, raising the suspicion of fluid or tumor. She is admitted for further examination in that regard. PAST MEDICAL HISTORY: She is followed for carotid stenosis and other medical problems, known to our office, Cardiology and she has a history of CKD 3B and is followed by Dr. Perez for this. MEDICATIONS: Listed per the chart. ALLERGIES: No known drug allergies are known. SOCIAL HISTORY: , lives alone, has a son here in the area. Nonsmoker, having smoked about 50-60 pack years. REVIEW OF SYSTEMS: Mild weight loss. No other specific complaints. OBJECTIVE: ENT: All within normal limits. NECK: No masses, nodes or bruits. LUNGS: Decreased breath sounds in the right posterior chest with notable dullness to percussion and egophony present. There is no tenderness present. CARDIOVASCULAR: Regular rate. No irregular beat or murmur. ABDOMEN: Benign, soft and nontender. EXTREMITIES: Unremarkable. Good pedal and radial pulses. Mild clubbing is noted. NEUROLOGIC: Physiologic. ASSESSMENT: Ongoing shortness of breath, hypoxia. Physical exam consistent with right-sided mass and pleural effusion. PLAN: Admit for further evaluation and likely CT scanning and pulmonary consultation. SANJUANA/STARR/NELLIE DR: SANJUANA/osman TID: [id number]
[2021-04-18 09:40] LABS: PROTHROMBIN TIME PATIENT 13.7 SEC (11.7-14.0)
--- NOTE | 2021-04-18 10:05 | PDOC ---
PULMONARY PROGRESS NOTES DATE: 04/18/21 TIME: 10:03 Subjective on 02 has sob has occ cough Vitals Vital Signs Date Time Temp Pulse Resp B/P (MAP) Pulse Ox O2 Delivery O2 Flow Rate FiO2 04/18/21 08:45 94 Nasal Cannula 6.0 04/18/21 07:00 97.5 96 17 155/81 (105) 97.5 ROS: No Nausea General: Alert HEENT: Other (nc at ) Lungs: Other (r diminished dull l a few end exp wheezing ) Cardiovascular: Other (irreg irreg ) Abdomen: Soft Neuro Exam: Alert Extremities: No Edema Skin: Warm Labs Laboratory Tests Test 04/17/21 06:45 04/17/21 12:15 04/18/21 06:55 04/18/21 08:55 SARS-CoV-2 Antigen (Rapid) Negative (NEGATIVE) White Blood Count 8.8 x10^3/uL (4.0-11.0) Red Blood Count 4.44 x10^6/uL (3.50-5.40) Hemoglobin 13.4 g/dL (12.0-15.5) Hematocrit 42.0 % (36.0-47.0) Mean Corpuscular Volume 95 fL (79-100) Mean Corpuscular Hemoglobin 30 pg (25-35) Mean Corpuscular Hemoglobin Concent 32 g/dL (31-37) Red Cell Distribution Width 14.5 % (11.5-14.5) Platelet Count 221 x10^3/uL (140-400) Neutrophils (%) (Auto) 85 % (31-73) Lymphocytes (%) (Auto) 10 % (24-48) Monocytes (%) (Auto) 5 % (0-9) Eosinophils (%) (Auto) 0 % (0-3) Basophils (%) (Auto) 0 % (0-3) Neutrophils # (Auto) 7.5 x10^3/uL (1.8-7.7) Lymphocytes # (Auto) 0.8 x10^3/uL (1.0-4.8) Monocytes # (Auto) 0.5 x10^3/uL (0.0-1.1) Eosinophils # (Auto) 0.0 x10^3/uL (0.0-0.7) Basophils # (Auto) 0.0 x10^3/uL (0.0-0.2) Sodium Level 139 mmol/L (136-145) Potassium Level 4.8 mmol/L (3.5-5.1) Chloride Level 103 mmol/L (98-107) Carbon Dioxide Level 23 mmol/L (21-32) Anion Gap 13 (6-14) Blood Urea Nitrogen 32 mg/dL (7-20) Creatinine 1.2 mg/dL (0.6-1.0) Estimated GFR (Cockcroft-Gault) 52.0 BUN/Creatinine Ratio 27 (6-20) Glucose Level 187 mg/dL (70-99) Calcium Level 9.2 mg/dL (8.5-10.1) Magnesium Level 2.1 mg/dL (1.8-2.4) Total Bilirubin 0.7 mg/dL (0.2-1.0) Aspartate Amino Transf (AST/SGOT) 26 U/L (15-37) Alanine Aminotransferase (ALT/SGPT) 35 U/L (14-59) Alkaline Phosphatase 87 U/L (46-116) Total Protein 7.2 g/dL (6.4-8.2) 7.3 g/dL (6.4-8.2) Albumin 3.0 g/dL (3.4-5.0) Albumin/Globulin Ratio 0.7 (1.0-1.7) Lactate Dehydrogenase 279 U/L (81-234) Prothrombin Time 13.7 SEC (11.7-14.0) Prothromb Time International Ratio 1.1 (0.8-1.1) Laboratory Tests Test 04/17/21 12:15 04/18/21 06:55 04/18/21 08:55 White Blood Count 8.8 x10^3/uL (4.0-11.0) Red Blood Count 4.44 x10^6/uL (3.50-5.40) Hemoglobin 13.4 g/dL (12.0-15.5) Hematocrit 42.0 % (36.0-47.0) Mean Corpuscular Volume 95 fL (79-100) Mean Corpuscular Hemoglobin 30 pg (25-35) Mean Corpuscular Hemoglobin Concent 32 g/dL (31-37) Red Cell Distribution Width 14.5 % (11.5-14.5) Platelet Count 221 x10^3/uL (140-400) Neutrophils (%) (Auto) 85 % (31-73) Lymphocytes (%) (Auto) 10 % (24-48) Monocytes (%) (Auto) 5 % (0-9) Eosinophils (%) (Auto) 0 % (0-3) Basophils (%) (Auto) 0 % (0-3) Neutrophils # (Auto) 7.5 x10^3/uL (1.8-7.7) Lymphocytes # (Auto) 0.8 x10^3/uL (1.0-4.8) Monocytes # (Auto) 0.5 x10^3/uL (0.0-1.1) Eosinophils # (Auto) 0.0 x10^3/uL (0.0-0.7) Basophils # (Auto) 0.0 x10^3/uL (0.0-0.2) Sodium Level 139 mmol/L (136-145) Potassium Level 4.8 mmol/L (3.5-5.1) Chloride Level 103 mmol/L (98-107) Carbon Dioxide Level 23 mmol/L (21-32) Anion Gap 13 (6-14) Blood Urea Nitrogen 32 mg/dL (7-20) Creatinine 1.2 mg/dL (0.6-1.0) Estimated GFR (Cockcroft-Gault) 52.0 BUN/Creatinine Ratio 27 (6-20) Glucose Level 187 mg/dL (70-99) Calcium Level 9.2 mg/dL (8.5-10.1) Magnesium Level 2.1 mg/dL (1.8-2.4) Total Bilirubin 0.7 mg/dL (0.2-1.0) Aspartate Amino Transf (AST/SGOT) 26 U/L (15-37) Alanine Aminotransferase (ALT/SGPT) 35 U/L (14-59) Alkaline Phosphatase 87 U/L (46-116) Total Protein 7.2 g/dL (6.4-8.2) 7.3 g/dL (6.4-8.2) Albumin 3.0 g/dL (3.4-5.0) Albumin/Globulin Ratio 0.7 (1.0-1.7) Lactate Dehydrogenase 279 U/L (81-234) Prothrombin Time 13.7 SEC (11.7-14.0) Prothromb Time International Ratio 1.1 (0.8-1.1) Medications Active Scripts Medications Dose Route/Sig Max Daily Dose Days Date Category Spironolactone 25 Mg Tablet 1 Tab PO DAILY 04/15/21 Reported Eliquis (Apixaban) 2.5 Mg Tablet 1 Tab PO BID 04/15/21 Reported Metoprolol Succinate ( Xl ) (Metoprolol Succinate) 25 Mg Tab.er.24h 1 Tab PO DAILY 04/15/21 Reported Amoxicillin 500 Mg Capsule 4 Cap PO ONCE PRN 04/15/21 Reported Atorvastatin Calcium 10 Mg Tablet 1 Tab PO DAILY 04/15/21 Reported Amlodipine Besylate 2.5 Mg Tablet 1 Tab PO DAILY 04/15/21 Reported Vitamin D (Cholecalciferol (Vitamin D3)) 1,000 Unit Capsule 2,000 Unit PO DAILY 08/27/[address] 1. Large malignant right pleural effusion with near-complete collapse of the right lung, with mild residual expansion/aeration of the right upper lobe. The size of the effusion has increased since the prior chest x-ray from one day ago with increased collapse of the right lung since the prior exam. There is mild leftward midline shift of the heart and mediastinum and inversion of the right diaphragm due to the large pleural effusion. 2. Enlarged mediastinal adenopathy. 3. 2.7 cm left lower lobe solid nodule with fine spiculations typical of a malignant nodule, this could represent a synchronous primary lung malignancy or a metastatic nodule. Impression . IMPRESSION: 1. Acute respiratory failure secondary to large right pleural effusion, chronic obstructive pulmonary disease with acute exacerbation, rule out acute diastolic congestive heart failure. 2. Abnormal chest x-ray/ct of chest suspect malignancy. 3. Right large pleural effusion, suspect loculated, so I suspect she has had it for a while. She denies any symptoms of recent pulmonary infection. Also has mass in the left lower lobe. Differential diagnosis including malignancy (big concern), inflammatory versus infectious 4. Ex-heavy smoker, suspect has significant chronic obstructive pulmonary disease with acute exacerbation. 5. Chronic diastolic congestive heart failure. 6. Atrial fibrillation, on Eliquis. 7. Hypertension. 8. Diabetes mellitus. 9. Weight loss suspect 2/2 malignancy. Plan . PLAN AND RECOMMENDATIONS: 1. Titrate FiO2 to keep O2 saturation 92%. 2. bronchodilator Atrovent only as she has atrial fibrillation. 3. Solu-Medrol 40 mg IV every 12 hours. 4. On hold Eliquis over the weekend. Thoracentesis scheduled for today.. We will send for cytology, Gram stain and culture, AFB smear and culture, fungal smear and culture, cell count with differential, LDH, total protein, glucose. 5. Thoracentesis was discussed with the patient, she is agreeable. 6. Continue home medication. 7. Once diagnosis of malignancy is confirmed by her thoracentesis, will consult radiation and medical oncology. Prognosis is grim for treatment. CHOLO JUAN MD Apr 18, 2021 10:05
[2021-04-18] MEDS: predniSONE 20 MG TABLET PO SCH (12:55)
[2021-04-18] MEDS: METOPROLOL SUCC 24HR ER 25 MG TAB.ER.24H. PO SCH (12:57)
--- NOTE | 2021-04-18 16:32 | RAD ---
Ultrasound Guided Thoracentesis Indication: Adult female with right pleural effusion. Consent: The procedure was explained in its entirety to the patient or the patients designated repres entative by a member of the treatment team, including a discussion of the risks, benefits and commonl y accepted alternatives to the procedure, as well as the expected consequences of not performing the procedure. Discussion of the risks included, but was not limited to, those that are most frequent an d those that are rare but possibly severe or life-threatening, as well as the possibility of unforese en complications. Sterility: The procedure was performed in its entirety using appropriate elements of sterile techniqu e. Technique and Findings: Following informed consent, the patient was prepped and draped in the usual s terile fashion. Ultrasound interrogation of the area of interest revealed a pleural effusion. Under ultrasound guidance, a 6 [place] island[place] [id number] catheter was inserted into the pleural space and 1.5 L of thin yellow fluid was removed. The catheter was removed and hemostasis was achieved with manual compression. Chest x-ray was ordered. Complications: No immediate Impression: 1. Ultrasound-guided right thoracentesis as described . Electronically signed by: Gilmer Waterman MD (04/18/2021 4:30 PM) [id number]
--- NOTE | 2021-04-18 17:35 | PDOC ---
PROGRESS NOTES Date of Service DATE: 04/18/21 TIME: 17:33 Subjective Subjective Patient seen and examined Objective Objective Vital Signs Date Time Temp Pulse Resp B/P (MAP) Pulse Ox O2 Delivery O2 Flow Rate FiO2 04/18/21 16:18 90 Nasal Cannula 6.0 04/18/21 14:02 135/62 (86) 04/18/21 13:50 98 04/18/21 11:00 97.4 17 97.4 Intake and Output 04/18/21 07:00 Intake Total 685 ml Output Total 0 ml Balance 685 ml Intake Oral 685 ml Output Urine Total 0 ml # Voids 5 Physical Exam Abdomen: Normal bowel sounds Heart: Regular rate General: mild distress Lungs: Other (Decreased breath sounds) Assessment Assessment 1. Acute respiratory failure. Patient has a large right-sided pleural effusion. She is followed by the pulmonary service and is scheduled for a thoracentesis today. Eliquis is on hold. 2. Possible additional acute heart failure. We will check an echocardiogram tomorrow after her thoracentesis today. Continuing baseline medications excluding Eliquis. 3. Chronic atrial fibrillation. Rate is under reasonable control. Eliquis has been held pending thoracentesis. 4. Hypertension. History of hypertension. We will continue to monitor and adjust medications as needed. 5. Reported history of coronary artery disease. Will attempt to obtain old records. 6. Diabetes mellitus. As per the primary service. Comment Review of Relevant I have reviewed the following items rebekah (where applicable) has been applied. Labs Laboratory Tests Test 04/17/21 06:45 04/17/21 12:15 04/18/21 06:55 04/18/21 08:55 SARS-CoV-2 Antigen (Rapid) Negative (NEGATIVE) White Blood Count 8.8 x10^3/uL (4.0-11.0) Red Blood Count 4.44 x10^6/uL (3.50-5.40) Hemoglobin 13.4 g/dL (12.0-15.5) Hematocrit 42.0 % (36.0-47.0) Mean Corpuscular Volume 95 fL (79-100) Mean Corpuscular Hemoglobin 30 pg (25-35) Mean Corpuscular Hemoglobin Concent 32 g/dL (31-37) Red Cell Distribution Width 14.5 % (11.5-14.5) Platelet Count 221 x10^3/uL (140-400) Neutrophils (%) (Auto) 85 % (31-73) Lymphocytes (%) (Auto) 10 % (24-48) Monocytes (%) (Auto) 5 % (0-9) Eosinophils (%) (Auto) 0 % (0-3) Basophils (%) (Auto) 0 % (0-3) Neutrophils # (Auto) 7.5 x10^3/uL (1.8-7.7) Lymphocytes # (Auto) 0.8 x10^3/uL (1.0-4.8) Monocytes # (Auto) 0.5 x10^3/uL (0.0-1.1) Eosinophils # (Auto) 0.0 x10^3/uL (0.0-0.7) Basophils # (Auto) 0.0 x10^3/uL (0.0-0.2) Sodium Level 139 mmol/L (136-145) Potassium Level 4.8 mmol/L (3.5-5.1) Chloride Level 103 mmol/L (98-107) Carbon Dioxide Level 23 mmol/L (21-32) Anion Gap 13 (6-14) Blood Urea Nitrogen 32 mg/dL (7-20) Creatinine 1.2 mg/dL (0.6-1.0) Estimated GFR (Cockcroft-Gault) 52.0 BUN/Creatinine Ratio 27 (6-20) Glucose Level 187 mg/dL (70-99) Calcium Level 9.2 mg/dL (8.5-10.1) Magnesium Level 2.1 mg/dL (1.8-2.4) Total Bilirubin 0.7 mg/dL (0.2-1.0) Aspartate Amino Transf (AST/SGOT) 26 U/L (15-37) Alanine Aminotransferase (ALT/SGPT) 35 U/L (14-59) Alkaline Phosphatase 87 U/L (46-116) Total Protein 7.2 g/dL (6.4-8.2) 7.3 g/dL (6.4-8.2) Albumin 3.0 g/dL (3.4-5.0) Albumin/Globulin Ratio 0.7 (1.0-1.7) Lactate Dehydrogenase 279 U/L (81-234) Prothrombin Time 13.7 SEC (11.7-14.0) Prothromb Time International Ratio 1.1 (0.8-1.1) Test 04/18/21 13:53 Body Fluid pH 7.54 Laboratory Tests Test 04/18/21 06:55 04/18/21 08:55 04/18/21 13:53 Lactate Dehydrogenase 279 U/L (81-234) Total Protein 7.3 g/dL (6.4-8.2) Prothrombin Time 13.7 SEC (11.7-14.0) Prothromb Time International Ratio 1.1 (0.8-1.1) Body Fluid pH 7.54 Medications Current Medications Atorvastatin Calcium (Lipitor) 10 mg DAILY PO Last administered on 04/17/21 08:36; Start 04/16/21 at 09:00 Metoprolol Succinate (Toprol Xl) 25 mg DAILY PO Last administered on 04/18/21 12:57; Start 04/16/21 at 09:00 Spironolactone (Aldactone) 25 mg DAILY PO ; Start 04/16/21 at 09:00; Stop 04/15/21 at 23:00; Status DC Amlodipine Besylate (Norvasc) 2.5 mg DAILY PO Last administered on 04/18/21 12:56; Start 04/16/21 at 09:00 Vitamin D (Vitamin D3) 2,000 unit DAILY PO Last administered on 04/17/21 08:35; Start 04/16/21 at 09:00 Spironolactone (Aldactone) 25 mg HS PO Last administered on 04/17/21at 20:42; Start 04/15/21 at 23:00 Ipratropium [place] (Atrovent) 0.5 mg RTQID NEB Last administered on 04/18/21 16:18; Start 04/16/21 at 08:00 Methylprednisolone Sodium Succinate (SOLU-Medrol 40MG VIAL) 40 mg Q12HR IV Last administered on 04/17/21 20:42; Start 04/16/21 at 09:00; Stop 04/18/21 at 07:58; Status DC Lorazepam (Ativan) 0.5 mg PRN Q8HRS PRN PO ANXIETY / AGITATION Last administered on 04/17/21at 20:42; Start 04/16/21 at 10:30 Prednisone (Prednisone) 40 mg DAILY PO Last administered on 04/18/21at 12:55; Start 04/18/21 at 09:00 Morphine Sulfate (Roxanol Conc) 10 mg PRN Q6HRS PRN SL DYSPNEA; Start 04/18/21 at 08:15 Active Scripts Active Reported Spironolactone 25 Mg Tablet 1 Tab PO DAILY Eliquis (Apixaban) 2.5 Mg Tablet 1 Tab PO BID Metoprolol Succinate ( Xl ) (Metoprolol Succinate) 25 Mg Tab.er.24h 1 Tab PO DAILY Amoxicillin 500 Mg Capsule 4 Cap PO ONCE PRN Atorvastatin Calcium 10 Mg Tablet 1 Tab PO DAILY Amlodipine Besylate 2.5 Mg Tablet 1 Tab PO DAILY Vitamin D (Cholecalciferol (Vitamin D3)) 1,000 Unit Capsule 2,000 Unit PO DAILY Vitals/I & O Vital Sign - Last 24 Hours 04/17/21 04/17/21 04/17/21 04/17/21 19:00 20:00 20:45 23:00 Temp 97.5 97.5 97.5 97.5 Pulse 91 80 Resp 22 20 B/P (MAP) 151/84 (106) 148/92 (110) Pulse Ox 98 92 95 O2 Delivery Nasal Cannula Nasal Cannula Nasal Cannula Nasal Cannula O2 Flow Rate 6.0 6.0 6.0 6.0 04/18/21 04/18/21 04/18/21 04/18/21 03:00 07:00 08:00 08:45 Temp 97.6 97.5 97.6 97.5 Pulse 87 96 Resp 20 17 B/P (MAP) 151/72 (98) 155/81 (105) Pulse Ox 98 94 94 O2 Delivery Nasal Cannula Nasal Cannula Nasal Cannula Nasal Cannula O2 Flow Rate 6.0 6.0 6.0 6.0 04/18/21 04/18/21 04/18/21 04/18/21 11:00 12:56 12:57 13:15 Temp 97.4 97.4 Pulse 96 96 96 Resp 17 B/P (MAP) 166/87 (113) 166/87 166/87 Pulse Ox 94 99 O2 Delivery Nasal Cannula Nasal Cannula O2 Flow Rate 6.0 6.0 04/18/21 04/18/21 04/18/21 13:50 14:02 16:18 Pulse 98 B/P (MAP) 142/67 (92) 135/62 (86) Pulse Ox 97 100 90 O2 Delivery Nasal Cannula Nasal Cannula O2 Flow Rate 6.0 Intake and Output 0 04/17/21 04/17/21 04/18/21 15:00 23:00 07:00 Intake Total 505 ml 180 ml Output Total 0 ml Balance 505 ml 180 ml Justifications for Admission Other Justification LESLIE YOUNG MD Apr 18, 2021 17:35
[2021-04-18 19:24] LABS: BF CLARITY CLEAR; BF COLOR YELLOW; BF SOURCE PLEURAL; BF WBC COUNT 480 /cmm (Not Established)
[2021-04-18 19:25] LABS: BF MON % 82 %; BF PMN % 12 %; BF RBC COUNT 240 /cmm (Not Established)
[2021-04-18 19:31] LABS: BF OTHER % 6 %
[2021-04-18] MEDS: SPIRONOLACTONE 25 MG TABLET PO SCH (21:33)
[2021-04-19 03:08] VITALS: BP 128/91
--- NOTE | 2021-04-19 07:55 | PDOC ---
Provider Note Date of Service: DATE: 04/19/21 TIME: 07:53 Provider Note vss, less dysp[neic after thoradcentesis, cyto pending- onco/radonc consults pending but likely no good options- continue comfort care, has noted tried roxanol yet Justifications for Admission Other Justification JONNY QUIROZ MD Apr 19, 2021 07:55
[2021-04-19] MEDS: CHOLECALCIFEROL (VITAMIN D3) 1,000 UNIT TABLET PO SCH (08:03)
[2021-04-19] MEDS: METOPROLOL SUCC 24HR ER 25 MG TAB.ER.24H. PO SCH (08:07)
[2021-04-19] MEDS: predniSONE 20 MG TABLET PO SCH (08:08)
[2021-04-19] MEDS: IPRATROPIUM BROMIDE 0.5 MG/2.5 ML NEBU. NEB SCH ×4 (08:44→20:49)
--- NOTE | 2021-04-19 10:18 | PDOC ---
PULMONARY PROGRESS NOTES DATE: 04/19/21 TIME: 10:15 Subjective Patient feels better after thoracentesis. Patient is more awake. Vitals Vital Signs Date Time Temp Pulse Resp B/P (MAP) Pulse Ox O2 Delivery O2 Flow Rate FiO2 04/19/21 08:45 95 Nasal Cannula 5.0 04/19/21 08:07 79 124/83 04/19/21 03:08 98.2 16 98.2 ROS: No Nausea General: Alert HEENT: Other (nc at ) Lungs: Other (r diminished dull l a few end exp wheezing ) Cardiovascular: Other (irreg irreg ) Abdomen: Soft Neuro Exam: Alert Extremities: No Edema Skin: Warm Labs Laboratory Tests Test 04/17/21 12:15 04/18/21 06:55 04/18/21 08:55 04/18/21 13:53 White Blood Count 8.8 x10^3/uL (4.0-11.0) Red Blood Count 4.44 x10^6/uL (3.50-5.40) Hemoglobin 13.4 g/dL (12.0-15.5) Hematocrit 42.0 % (36.0-47.0) Mean Corpuscular Volume 95 fL (79-100) Mean Corpuscular Hemoglobin 30 pg (25-35) Mean Corpuscular Hemoglobin Concent 32 g/dL (31-37) Red Cell Distribution Width 14.5 % (11.5-14.5) Platelet Count 221 x10^3/uL (140-400) Neutrophils (%) (Auto) 85 % (31-73) Lymphocytes (%) (Auto) 10 % (24-48) Monocytes (%) (Auto) 5 % (0-9) Eosinophils (%) (Auto) 0 % (0-3) Basophils (%) (Auto) 0 % (0-3) Neutrophils # (Auto) 7.5 x10^3/uL (1.8-7.7) Lymphocytes # (Auto) 0.8 x10^3/uL (1.0-4.8) Monocytes # (Auto) 0.5 x10^3/uL (0.0-1.1) Eosinophils # (Auto) 0.0 x10^3/uL (0.0-0.7) Basophils # (Auto) 0.0 x10^3/uL (0.0-0.2) Sodium Level 139 mmol/L (136-145) Potassium Level 4.8 mmol/L (3.5-5.1) Chloride Level 103 mmol/L (98-107) Carbon Dioxide Level 23 mmol/L (21-32) Anion Gap 13 (6-14) Blood Urea Nitrogen 32 mg/dL (7-20) Creatinine 1.2 mg/dL (0.6-1.0) Estimated GFR (Cockcroft-Gault) 52.0 BUN/Creatinine Ratio 27 (6-20) Glucose Level 187 mg/dL (70-99) Calcium Level 9.2 mg/dL (8.5-10.1) Magnesium Level 2.1 mg/dL (1.8-2.4) Total Bilirubin 0.7 mg/dL (0.2-1.0) Aspartate Amino Transf (AST/SGOT) 26 U/L (15-37) Alanine Aminotransferase (ALT/SGPT) 35 U/L (14-59) Alkaline Phosphatase 87 U/L (46-116) Total Protein 7.2 g/dL (6.4-8.2) 7.3 g/dL (6.4-8.2) Albumin 3.0 g/dL (3.4-5.0) Albumin/Globulin Ratio 0.7 (1.0-1.7) Lactate Dehydrogenase 279 U/L (81-234) Prothrombin Time 13.7 SEC (11.7-14.0) Prothromb Time International Ratio 1.1 (0.8-1.1) Body Fluid Source Pleural Body Fluid Color Yellow Body Fluid Clarity Clear Body Fluid pH 7.54 Body Fluid Nucleated Cells 480 /cmm (Not Established) Body Fluid Mononuclear WBCs (%) 82 % Body Fluid Polymorphonuclear Cells 12 % Body Fluid Total RBCs Counted 240 /cmm (Not Established) Body Fluid Other Cells (%) 6 % Laboratory Tests Test 04/18/21 13:53 Body Fluid Source Pleural Body Fluid Color Yellow Body Fluid Clarity Clear Body Fluid pH 7.54 Body Fluid Nucleated Cells 480 /cmm (Not Established) Body Fluid Mononuclear WBCs (%) 82 % Body Fluid Polymorphonuclear Cells 12 % Body Fluid Total RBCs Counted 240 /cmm (Not Established) Body Fluid Other Cells (%) 6 % Medications Active Scripts Medications Dose Route/Sig Max Daily Dose Days Date Category Spironolactone 25 Mg Tablet 1 Tab PO DAILY 04/15/21 Reported Eliquis (Apixaban) 2.5 Mg Tablet 1 Tab PO BID 04/15/21 Reported Metoprolol Succinate ( Xl ) (Metoprolol Succinate) 25 Mg Tab.er.24h 1 Tab PO DAILY 04/15/21 Reported Amoxicillin 500 Mg Capsule 4 Cap PO ONCE PRN 04/15/21 Reported Atorvastatin Calcium 10 Mg Tablet 1 Tab PO DAILY 04/15/21 Reported Amlodipine Besylate 2.5 Mg Tablet 1 Tab PO DAILY 04/15/21 Reported Vitamin D (Cholecalciferol (Vitamin D3)) 1,000 Unit Capsule 2,000 Unit PO DAILY 08/27/[address] 1. Large malignant right pleural effusion with near-complete collapse of the right lung, with mild residual expansion/aeration of the right upper lobe. The size of the effusion has increased since the prior chest x-ray from one day ago with increased collapse of the right lung since the prior exam. There is mild leftward midline shift of the heart and mediastinum and inversion of the right diaphragm due to the large pleural effusion. 2. Enlarged mediastinal adenopathy. 3. 2.7 cm left lower lobe solid nodule with fine spiculations typical of a malignant nodule, this could represent a synchronous primary lung malignancy or a metastatic nodule. Impression . IMPRESSION: 1. Acute respiratory failure secondary to large right pleural effusion, chronic obstructive pulmonary disease with acute exacerbation, ? out acute diastolic congestive heart failure. 2. Abnormal chest x-ray/ct of chest suspect malignancy. 3. Right large pleural effusion, suspect loculated, so I suspect she has had it for a while. She denies any symptoms of recent pulmonary infection. Also has mass in the left lower lobe. Differential diagnosis including malignancy (big concern), inflammatory versus infectious 4. Ex-heavy smoker, suspect has significant chronic obstructive pulmonary disease with acute exacerbation. 5. Chronic diastolic congestive heart failure. 6. Atrial fibrillation, on Eliquis. 7. Hypertension. 8. Diabetes mellitus. 9. Weight loss suspect 2/2 malignancy. Plan . PLAN AND RECOMMENDATIONS: 1. Titrate FiO2 to keep O2 saturation 92%. Clinically feels better status post thoracentesis. 1.5 L of fluid removed. If fluid is nondiagnostic, then she may require biopsy of the left lung mass. 2. bronchodilator Atrovent only as she has atrial fibrillation. 3. Solu-Medrol 40 mg IV every 12 hours. 4. On hold Eliquis . 5. Follow analysis of pleural fluid especially cytology. 6. Continue home medication. 7. Once diagnosis of malignancy is confirmed by her thoracentesis, will consult radiation and medical oncology. Prognosis is grim for treatment. CHOLO JUAN MD Apr 19, 2021 10:18
[2021-04-19 10:25] VITALS: BP 124/83
--- NOTE | 2021-04-19 10:34 | CARD ---
MR#: [id number] Date of Study: 04/19/2021 Ordering Physician: LESLIE YOUNG, Referring Physician: LESLIE YOUNG, Tech: Divina Cruz [facility] APPROVED REPORT EXAM: Two-dimensional and M-mode echocardiogram with Doppler and color Doppler. Other Information Quality : GoodHR: 98bpm Rhythm : Atrial Fibrillation INDICATION Atrial Fibrillation Congestive Heart Failure RISK FACTORS Hypertension 2D DIMENSIONS RVDd2.9 (2.9-3.5cm)Left Atrium(2D)5.3 (1.6-4.0cm) IVSd1.1 (0.7-1.1cm)Aortic Root(2D)3.0 (2.0-3.7cm) LVDd3.6 (3.9-5.9cm)LVOT Diameter2.1 (1.8-2.4cm) PWd1.1 (0.7-1.1cm)LVDs2.0 (2.5-4.0cm) FS (%) 44.7 %SV41.8 ml LVEF(%)76.9 (>50%) Aortic Valve AoV Peak Mikal.129.4cm/sAoV VTI22.2cm AO Peak GR.6.7mmHgLVOT Peak Mikal.92.1cm/s AO Mean GR.3mmHgAVA (VMAX)2.53cm2 Tricuspid Valve TR P. [id number] Peak Gr.29mmHg LEFT VENTRICLE The left ventricle is normal size. There is mild concentric left ventricular hypertrophy. The left ve ntricular systolic function is normal. Estimated ejection fraction 55%. There is normal LV segmental wall motion. RIGHT VENTRICLE The right ventricle is normal size. There is normal right ventricular wall thickness. The right ventr icular systolic function is normal. ATRIA The left atrium is moderately dilated. The right atrium is moderately dilated. The interatrial septum is intact with no evidence for an atrial septal defect or patent foramen ovale as noted on 2-D or Do ppler imaging. AORTIC VALVE The aortic valve is normal in structure and function. Doppler and Color Flow revealed no significant aortic regurgitation. There is no significant aortic valvular stenosis. MITRAL VALVE The mitral valve is normal in structure and function. There is no evidence of mitral valve prolapse. There is no mitral valve stenosis. Doppler and Color-flow revealed mild mitral regurgitation. TRICUSPID VALVE The tricuspid valve is normal in structure and function. Doppler and Color Flow revealed moderate tri cuspid regurgitation. Estimated PAP 32-35 mmHg. There is no tricuspid valve stenosis. PULMONIC VALVE The pulmonary valve is normal in structure and function. Doppler and Color Flow revealed mild pulmoni c valvular regurgitation. GREAT VESSELS The aortic root is normal in size. The ascending aorta is normal in size. The IVC is normal in size a nd collapses >50% with inspiration. PERICARDIAL EFFUSION There is no evidence of significant pericardial effusion. Critical Notification Critical Value: No <Conclusion> The left ventricular systolic function is normal. Estimated ejection fraction 55%. There is normal LV segmental wall motion. Mild mitral regurgitation. Moderate tricuspid regurgitation. Estimated PAP 32-35 mmHg. There is no evidence of significant pericardial effusion. Signed by : Mario Hayes, Electronically Approved : 04/19/2021 10:34:10
--- NOTE | 2021-04-19 11:32 | PDOC ---
CARDIO Progress Notes Date and Time Date of Service 04/19/2021 Time of Evaluation 1120 Subjective Subjective: No Chest Pain, No Palpitations, Other (SOA better) Vitals Vitals Vital Signs Date Time Temp Pulse Resp B/P (MAP) Pulse Ox O2 Delivery O2 Flow Rate FiO2 04/19/21 10:25 97.5 76 18 124/83 (97) 92 Nasal Cannula 6.0 97.5 Weight Weight [ ] Input and Output Intake and Output Intake and Output 04/19/21 07:00 Intake Total 50 ml Output Total 1501 ml Balance -1451 ml Intake Oral 50 ml Stool Total 1 ml Drainage Total 1500 ml # Voids 3 Laboratory Labs Laboratory Tests Test 04/18/21 13:53 Body Fluid Source Pleural Body Fluid Color Yellow Body Fluid Clarity Clear Body Fluid pH 7.54 Body Fluid Nucleated Cells 480 /cmm (Not Established) Body Fluid Mononuclear WBCs (%) 82 % Body Fluid Polymorphonuclear Cells 12 % Body Fluid Total RBCs Counted 240 /cmm (Not Established) Body Fluid Other Cells (%) 6 % Physical Exam HEENT: Neck Supple W Full Motion Chest: Symmetric LUNGS: Other (basilar crackles) Heart: irregularly irregular (AFIB) Abdomen: Soft N/T Extremities: No Calf Tenderness Neurology: alert, oriented, follow commands Assessment Assessment 1. Acute respiratory failure with COPD, right pleural effusion and CHF. 2. Acute on chronic diastolic CHF: EF and WM nml per TTE 3. AECOPD 4. Chronic AFIB: rate controlled 5. CAD: unknown details 6. DM2 7. Moderate TR 8. Right pleural effusion: S/P right thoracentesis Recommendations 1. Continue pulmonary optimization, await cytology 2. Secondary prevention measures 3. Restart eliquis Justicifation of Admission Dx: Justifications for Admission: Justification of Admission Dx: Yes BROOKE JONES APRN Apr 19, 2021 11:32
[2021-04-19 15:00] VITALS: BP 138/77
[2021-04-19 19:00] VITALS: BP 115/73
[2021-04-19] MEDS: APIXABAN 2.5 MG TABLET. PO SCH (20:46)
[2021-04-19] MEDS: SPIRONOLACTONE 25 MG TABLET PO SCH (20:47)
[2021-04-19 23:06] VITALS: BP 128/81
[2021-04-20 02:45] VITALS: BP 107/68
[2021-04-20 07:00] VITALS: BP 125/78
[2021-04-20] MEDS: IPRATROPIUM BROMIDE 0.5 MG/2.5 ML NEBU. NEB SCH ×4 (07:34→20:41)
[2021-04-20] MEDS: CHOLECALCIFEROL (VITAMIN D3) 1,000 UNIT TABLET PO SCH (08:01)
[2021-04-20] MEDS: predniSONE 20 MG TABLET PO SCH (08:01)
[2021-04-20] MEDS: METOPROLOL SUCC 24HR ER 25 MG TAB.ER.24H. PO SCH (08:02)
[2021-04-20] MEDS: APIXABAN 2.5 MG TABLET. PO SCH ×2 (08:03→22:05)
--- NOTE | 2021-04-20 08:25 | PDOC ---
Provider Note Date of Service: DATE: 04/20/21 TIME: 08:25 Provider Note status same, cytology and consults pending- will be appropriate for hospice at home on dc Justifications for Admission Other Justification JONNY QUIROZ MD Apr 20, 2021 08:25
[2021-04-20] MEDS: ACETAMINOPHEN 500 MG TABLET PO PRN ×2 (09:30→15:11)
--- NOTE | 2021-04-20 10:15 | PDOC ---
PULMONARY PROGRESS NOTES DATE: 04/20/21 TIME: 10:13 Subjective Patient feels better after thoracentesis. Patient is more awake. Vitals Vital Signs Date Time Temp Pulse Resp B/P (MAP) Pulse Ox O2 Delivery O2 Flow Rate FiO2 04/20/21 08:03 94 125/78 04/20/21 08:00 Nasal Cannula 2.0 04/20/21 07:34 100 04/20/21 07:00 97.6 17 97.6 ROS: No Nausea General: Alert HEENT: Other (nc at ) Lungs: Other (r diminished dull l a few end exp wheezing ) Cardiovascular: Other (irreg irreg ) Abdomen: Soft Neuro Exam: Alert Extremities: No Edema Skin: Warm Labs Laboratory Tests Test 04/18/21 13:53 Body Fluid Source Pleural Body Fluid Color Yellow Body Fluid Clarity Clear Body Fluid pH 7.54 Body Fluid Nucleated Cells 480 /cmm (Not Established) Body Fluid Mononuclear WBCs (%) 82 % Body Fluid Polymorphonuclear Cells 12 % Body Fluid Total RBCs Counted 240 /cmm (Not Established) Body Fluid Other Cells (%) 6 % Medications Active Scripts Medications Dose Route/Sig Max Daily Dose Days Date Category Spironolactone 25 Mg Tablet 1 Tab PO DAILY 04/15/21 Reported Eliquis (Apixaban) 2.5 Mg Tablet 1 Tab PO BID 04/15/21 Reported Metoprolol Succinate ( Xl ) (Metoprolol Succinate) 25 Mg Tab.er.24h 1 Tab PO DAILY 04/15/21 Reported Amoxicillin 500 Mg Capsule 4 Cap PO ONCE PRN 04/15/21 Reported Atorvastatin Calcium 10 Mg Tablet 1 Tab PO DAILY 04/15/21 Reported Amlodipine Besylate 2.5 Mg Tablet 1 Tab PO DAILY 04/15/21 Reported Vitamin D (Cholecalciferol (Vitamin D3)) 1,000 Unit Capsule 2,000 Unit PO DAILY 08/27/[address] 1. Large malignant right pleural effusion with near-complete collapse of the right lung, with mild residual expansion/aeration of the right upper lobe. The size of the effusion has increased since the prior chest x-ray from one day ago with increased collapse of the right lung since the prior exam. There is mild leftward midline shift of the heart and mediastinum and inversion of the right diaphragm due to the large pleural effusion. 2. Enlarged mediastinal adenopathy. 3. 2.7 cm left lower lobe solid nodule with fine spiculations typical of a malignant nodule, this could represent a synchronous primary lung malignancy or a metastatic nodule. Impression . IMPRESSION: 1. Acute respiratory failure secondary to large right pleural effusion, chronic obstructive pulmonary disease with acute exacerbation, ? out acute diastolic congestive heart failure. 2. Abnormal chest x-ray/ct of chest suspect malignancy. 3. Right large pleural effusion, suspect loculated, so I suspect she has had it for a while. She denies any symptoms of recent pulmonary infection. Also has mass in the left lower lobe. Differential diagnosis including malignancy (big concern), inflammatory versus infectious 4. Ex-heavy smoker, suspect has significant chronic obstructive pulmonary disease with acute exacerbation. 5. Chronic diastolic congestive heart failure. 6. Atrial fibrillation, on Eliquis. 7. Hypertension. 8. Diabetes mellitus. 9. Weight loss suspect 2/2 malignancy. Plan . PLAN AND RECOMMENDATIONS: 1. Titrate FiO2 to keep O2 saturation 92%. Clinically feels better status post thoracentesis. 1.5 L of fluid removed. Discussed with pathology. Pleural fluid is positive for malignancy. Awaiting special stains. 2. bronchodilator Atrovent only as she has atrial fibrillation. 3. Solu-Medrol 4. Can restart Eliquis . 5. I have discussed with the patient regarding the finding of malignant pleural effusion. She likely has stage IV cancer. Likely primary lung cancer. She has history of lumpectomy but no breast cancer. She also has history of cervical cancer in the past. I did discussed about the put potential option for treatment with chemo. She is not so sure. Will inform Dr. Kwan Hodge and son. Patient is not the most optimal candidate for treatment. Recommend hospice. Addendum; I talk to patient's son Jose L. Told him about the diagnosis. This is stage IV cancer. He said that he will be later this afternoon and will discuss with his mother about what she wants to do. I did told him that if they all decided not to do any treatment, then hospice can be arranged. Alternatively oncology consultation can be obtained. CHOLO JUAN MD Apr 20, 2021 10:15
[2021-04-20 11:00] VITALS: BP 123/80
--- NOTE | 2021-04-20 11:31 | PDOC ---
GAVINOHANNYKristalBROOKE Leon CHANNEL INSTALLER 04/20/21 1131: CARDIO Progress Notes Date and Time Date of Service Time of Evaluation 1110 Subjective Subjective: No Chest Pain, No shortness of breath, No Palpitations Vitals Vitals Vital Signs Date Time Temp Pulse Resp B/P (MAP) Pulse Ox O2 Delivery O2 Flow Rate FiO2 04/20/21 11:23 93 Room Air 04/20/21 11:00 98.3 92 17 123/80 (94) 6.0 98.3 Weight Weight [ ] Input and Output Intake and Output Intake and Output 04/20/21 07:00 Intake Total 350 ml Output Total 100 ml Balance 250 ml Intake Oral 350 ml Output Urine Total 100 ml # Voids 2 Microbiology Micro Microbiology 04/18/21 Gram Stain - Final, Resulted 04/18/21 Aerobic and Anaerobic Culture - Preliminary, Resulted Physical Exam HEENT: Neck Supple W Full Motion Chest: Symmetric LUNGS: Other (basilar crackles) Heart: irregularly irregular (off monitor) Abdomen: Soft N/T Extremities: No Calf Tenderness Neurology: alert, oriented, follow commands Assessment Assessment 1. Acute respiratory failure with COPD, right pleural effusion and CHF. 2. Acute on chronic diastolic CHF: EF and WM nml per TTE. better compensated 3. AECOPD 4. Chronic AFIB: rate controlled 5. CAD: unknown details 6. DM2 7. Moderate TR 8. Right pleural effusion: S/P right thoracentesis Recommendations 1. Continue pulmonary optimization, await cytology 2. Secondary prevention measures 3. eliquis for stroke prevention 4. Supportive care Justicifation of Admission Dx: Justifications for Admission: Justification of Admission Dx: Yes LESLIE YOUNG MD 04/20/21 1627: CARDIO Progress Notes Assessment Assessment Patient seen and examined I agree with our nurse practitioners assessment and plan. Acute respiratory failure with COPD, right pleural effusion and CHF. Mildly improved. Acute on chronic diastolic CHF: EF and WM nml per TTE. better compensated AECOPD Chronic AFIB: rate controlled CAD: unknown details. Continuing present treatment. DM2 Moderate TR Right pleural effusion: S/P right thoracentesis BROOKE JONES APRN Apr 20, 2021 11:31 LESLIE YOUNG MD Apr 20, 2021 16:27
[2021-04-20] MEDS: ANTI-COAG MONITOR BY PHARMACY. MC PRN (11:48)
--- NOTE | 2021-04-20 13:35 | PDOC2 ---
CONSULT Date of Consult Date of Consult DATE: 04/20/21 TIME: 13:27 Reason for Consult Reason for Consult: Lung cancer Referring Physician Referring Physician: Dr. Hodge Identification/Chief Complaint Chief Complaint Shortness of breath Source Source: Chart review, Patient History of Present Illness Reason for Visit: Tone Bello is an 80-year-old female with history of COPD and cardiomyopathy who presented to the hospital with shortness of breath. Tone received chest x-ray for further evaluation which showed right-sided pleural effusion. CT chest was obtained for further evaluation and showed a large malignant right pleural effusion with near-complete collapse of the right lung, with mild residual expansion/aeration of the right upper lobe. There is mild leftward midline shift of the heart and mediastinum and inversion of the right diaphragm due to the large pleural effusion. CT showed enlarged mediastinal adenopathy. In a ddition, 2.7 cm left lower lobe solid nodule was noticed. He received thoracentesis and prelim cytology was positive for cancer. Medical oncology consultation has been requested due to to cancer diagnosis. The patient is considering hospice care. She reports her from lung cancer in 2019. Past Medical History Cardiovascular: AFIB, CAD, CHF, HTN Pulmonary: COPD Heme/Onc: Other (Solid lung nodule as above. Cervical cancer) Endocrine: Diabetes Past Surgical History Past Surgical History: Hysterectomy, Other (Lumpectomy) Family History Family History: Hypertension Social History Quit ALCOHOL: none Current Medications Current Medications Current Medications Atorvastatin Calcium (Lipitor) 10 mg DAILY PO Last administered on 04/17/21at 08:36; Start 04/16/21 at 09:00; Stop 04/19/21 at 07:56; Status DC Metoprolol Succinate (Toprol Xl) 25 mg DAILY PO Last administered on 04/20/21at 08:02; Start 04/16/21 at 09:00 Spironolactone (Aldactone) 25 mg DAILY PO ; Start 04/16/21 at 09:00; Stop 04/15/21 at 23:00; Status DC Amlodipine Besylate (Norvasc) 2.5 mg DAILY PO Last administered on 04/20/21at 08:03; Start 04/16/21 at 09:00 Vitamin D (Vitamin D3) 2,000 unit DAILY PO Last administered on 04/20/21at 08:01; Start 04/16/21 at 09:00 Spironolactone (Aldactone) 25 mg HS PO Last administered on 04/19/21at 20:47; Start 04/15/21 at 23:00 Ipratropium [place] (Atrovent) 0.5 mg RTQID NEB Last administered on 04/20/21at 11:22; Start 04/16/21 at 08:00 Methylprednisolone Sodium Succinate (SOLU-Medrol 40MG VIAL) 40 mg Q12HR IV Last administered on 04/17/21at 20:42; Start 04/16/21 at 09:00; Stop 04/18/21 at 07:58; Status DC Lorazepam (Ativan) 0.5 mg PRN Q8HRS PRN PO ANXIETY / AGITATION Last administered on 04/17/21at 20:42; Start 04/16/21 at 10:30 Prednisone (Prednisone) 40 mg DAILY PO Last administered on 04/20/21at 08:01; Start 04/18/21 at 09:00 Morphine Sulfate (Roxanol Conc) 10 mg PRN Q6HRS PRN SL DYSPNEA; Start 04/18/21 at 08:15 Acetaminophen (Tylenol) 500 mg PRN Q6HRS PRN PO MILD PAIN / TEMP > 100.3'F Last administered on 04/20/21at 09:30; Start 04/18/21 at 21:30 Apixaban (Eliquis) 2.5 mg BID PO ; Start 04/19/21 at 21:00 Info (Anti-Coagulation Monitoring By Pharmacy) 1 each PRN DAILY PRN MC PER PROTOCOL Last administered on 04/20/21at 11:48; Start 04/19/21 at 12:45 Active Scripts Active Reported Spironolactone 25 Mg Tablet 1 Tab PO DAILY Eliquis (Apixaban) 2.5 Mg Tablet 1 Tab PO BID Metoprolol Succinate ( Xl ) (Metoprolol Succinate) 25 Mg Tab.er.24h 1 Tab PO DAILY Amoxicillin 500 Mg Capsule 4 Cap PO ONCE PRN Atorvastatin Calcium 10 Mg Tablet 1 Tab PO DAILY Amlodipine Besylate 2.5 Mg Tablet 1 Tab PO DAILY Vitamin D (Cholecalciferol (Vitamin D3)) 1,000 Unit Capsule 2,000 Unit PO DAILY Allergies Allergies: Coded Allergies: latex (Verified Allergy, Severe, Rash, 09/15/14) ROS Review of System Negative unless stated otherwise in HPI Physical Exam General: Alert, Oriented X3 HEENT: Atraumatic Lungs: Clear to auscultation Heart: Regular rate Abdomen: Soft Extremities: No cyanosis Skin: No breakdown Neuro: Normal speech Psych/Mental Status: Mental status NL Vitals VITALS Vital Signs Date Time Temp Pulse Resp B/P (MAP) Pulse Ox O2 Delivery O2 Flow Rate FiO2 04/20/21 11:23 93 Room Air 04/20/21 11:00 98.3 92 17 123/80 (94) 6.0 98.3 Labs Labs Laboratory Tests Test 04/18/21 13:53 Body Fluid Source Pleural Body Fluid Color Yellow Body Fluid Clarity Clear Body Fluid pH 7.54 Body Fluid Nucleated Cells 480 /cmm (Not Established) Body Fluid Mononuclear WBCs (%) 82 % Body Fluid Polymorphonuclear Cells 12 % Body Fluid Total RBCs Counted 240 /cmm (Not Established) Body Fluid Other Cells (%) 6 % Body Fluid Total Protein 4.3 g/dL (.) Body Fluid Lactate Dehydrogenase 284 IU/L (.) Assessment/Plan Assessment/Plan Assessment: Lung cancer, pathology pending, stage IV with malignant pleural effusion Acute respiratory failure, multifactorial History of COPD Chronic diastolic heart failure Atrial fibrillation, rate controlled on AC Hypertension Type 2 diabetes Malignant pleural effusion Recommendations: -Reviewed results of CT chest with the patient. I discussed with the patient the likely diagnosis of metastatic lung cancer given malignant pleural effusion -We discussed the management of advanced non-small cell lung cancer. We discussed the role of PD-L1 assessment and tow bar driver mutation testing in defining the choice of treatment. -I informed the patient that the role of systemic therapy in advanced cancers was palliation of disease related symptoms and prolonging life. We discussed that these treatments are not curative in nature. -We discussed the management of advanced cancer is in the elderly with low functional status. We reviewed that she would be at increased risk for complications due to low functional status. -She plans to discuss with her family before making decision regarding co ntinuing with further work-up versus transitioning to hospice care. -Plan to obtain CT abdomen and pelvis with contrast and PD-L1 assessment and tow bar driver mutation testing if she is interested in exploring treatment options -We will continue to follow. Other management per Dr. Mendiola and Dr. Naveen Duenas MD Medical Oncology/Hematology Ph: [phone] SIGIFREDO DUENAS MD Apr 20, 2021 13:35
[2021-04-20 15:00] VITALS: BP 124/67
[2021-04-20] MEDS: LORazepam 0.5 MG TABLET PO PRN (15:11)
[2021-04-20 19:00] VITALS: BP 126/78
[2021-04-20] MEDS: SPIRONOLACTONE 25 MG TABLET PO SCH (21:00)
[2021-04-20 23:35] VITALS: BP 125/84
[2021-04-21 03:47] VITALS: BP 121/62
[2021-04-21 07:00] VITALS: BP 135/79
[2021-04-21] MEDS: IPRATROPIUM BROMIDE 0.5 MG/2.5 ML NEBU. NEB SCH ×2 (07:57→11:56)
[2021-04-21] MEDS: CHOLECALCIFEROL (VITAMIN D3) 1,000 UNIT TABLET PO SCH (08:05)
[2021-04-21] MEDS: APIXABAN 2.5 MG TABLET. PO SCH (08:06)
[2021-04-21] MEDS: predniSONE 20 MG TABLET PO SCH (08:06)
[2021-04-21] MEDS: METOPROLOL SUCC 24HR ER 25 MG TAB.ER.24H. PO SCH (08:06)
--- NOTE | 2021-04-21 08:17 | PDOC ---
Provider Note Date of Service: DATE: 04/21/21 TIME: 08:15 Provider Note [id number] Justifications for Admission Other Justification JONNY QUIROZ MD Apr 21, 2021 08:17
--- NOTE | 2021-04-21 08:19 | SNU/HH DC ---
DISCHARGE ORDERS DISCHARGE INFORMATION: CONDITION ON DISCHARGE: Guarded CODE STATUS: Code Status: DNR/DNI HOSPICE: HOSPICE: Yes HOSPICE EVAL & TREAT: Yes POST DISCHARGE ORDERS: DIET AFTER DISCHARGE: Regular DISCHARGE MEDICATIONS: Home Meds Reported Medications Spironolactone (SPIRONOLACTONE) 25 Mg Tablet, 1 TAB PO DAILY for diuretic 04/15/21 Apixaban (ELIQUIS) 2.5 Mg Tablet, 1 TAB PO BID for blood clots 04/15/21 Metoprolol Succinate (METOPROLOL SUCCINATE ( XL )) 25 Mg Tab.er.24h, 1 TAB PO DAILY for bp 04/15/21 Amoxicillin (AMOXICILLIN) 500 Mg Capsule, 4 CAP PO ONCE PRN for PRIOR TO PROCEDURE 04/15/21 Atorvastatin Calcium (ATORVASTATIN CALCIUM) 10 Mg Tablet, 1 TAB PO DAILY for cholesterol 04/15/21 Amlodipine Besylate (AMLODIPINE BESYLATE) 2.5 Mg Tablet, 1 TAB PO DAILY for bp 04/15/21 Cholecalciferol (Vitamin D3) (VITAMIN D) 1,000 Unit Capsule, 2000 UNIT PO DAILY for vitamin 08/27/14 JONNY QUIROZ MD Apr 21, 2021 08:19
[2021-04-21 10:40] VITALS: BP 123/61
[2021-04-21] MEDS: ANTI-COAG MONITOR BY PHARMACY. MC PRN (11:10)
--- NOTE | 2021-04-21 11:13 | PDOC ---
PULMONARY PROGRESS NOTES DATE: 04/21/21 TIME: 11:10 Subjective Patient feels better after thoracentesis. Patient is more awake. Vitals Vital Signs Date Time Temp Pulse Resp B/P (MAP) Pulse Ox O2 Delivery O2 Flow Rate FiO2 04/21/21 10:40 97.5 95 22 123/61 (81) 92 Nasal Cannula 3.0 97.5 ROS: No Nausea General: Alert HEENT: Other (nc at ) Lungs: Other (r diminished dull l a few end exp wheezing ) Cardiovascular: Other (irreg irreg ) Abdomen: Soft Neuro Exam: Alert Extremities: No Edema Skin: Warm Medications Active Scripts Medications Dose Route/Sig Max Daily Dose Days Date Category Spironolactone 25 Mg Tablet 1 Tab PO DAILY 04/15/21 Reported Eliquis (Apixaban) 2.5 Mg Tablet 1 Tab PO BID 04/15/21 Reported Metoprolol Succinate ( Xl ) (Metoprolol Succinate) 25 Mg Tab.er.24h 1 Tab PO DAILY 04/15/21 Reported Amoxicillin 500 Mg Capsule 4 Cap PO ONCE PRN 04/15/21 Reported Atorvastatin Calcium 10 Mg Tablet 1 Tab PO DAILY 04/15/21 Reported Amlodipine Besylate 2.5 Mg Tablet 1 Tab PO DAILY 04/15/21 Reported Vitamin D (Cholecalciferol (Vitamin D3)) 1,000 Unit Capsule 2,000 Unit PO DAILY 08/27/[address] 1. Large malignant right pleural effusion with near-complete collapse of the right lung, with mild residual expansion/aeration of the right upper lobe. The size of the effusion has increased since the prior chest x-ray from one day ago with increased collapse of the right lung since the prior exam. There is mild leftward midline shift of the heart and mediastinum and inversion of the right diaphragm due to the large pleural effusion. 2. Enlarged mediastinal adenopathy. 3. 2.7 cm left lower lobe solid nodule with fine spiculations typical of a malignant nodule, this could represent a synchronous primary lung malignancy or a metastatic nodule. Impression . IMPRESSION: 1. Acute respiratory failure secondary to large malignant right pleural effusion, chronic obstructive pulmonary disease with acute exacerbation, ? acute diastolic congestive heart failure. 2. Abnormal chest x-ray/ct of chest 3. Right large malignant pleural effusion, status post thoracentesis. Clinically better 4. Ex-heavy smoker, suspect has significant chronic obstructive pulmonary disease with acute exacerbation. 5. Chronic diastolic congestive heart failure. 6. Atrial fibrillation, on Eliquis. 7. Hypertension. 8. Diabetes mellitus. 9. Weight loss suspect 2/2 malignancy. Plan . PLAN AND RECOMMENDATIONS: 1. Titrate FiO2 to keep O2 saturation 92%. Clinically feels better status post thoracentesis. 1.5 L of fluid removed. Discussed with pathology. Pleural fluid is positive for malignancy. Awaiting special stains. 2. bronchodilator Atrovent only as she has atrial fibrillation. 3. Solu-Medrol 4. Can restart Eliquis . 5. I have discussed with the patient regarding the finding of malignant pleural effusion. She likely has stage IV cancer. Likely primary lung cancer. She has history of lumpectomy but no breast cancer. She also has history of cervical cancer in the past. I did discussed about the put potential option for treatment with chemo. She is not so sure. I had spoken to the patient again today that it will be her decision regarding any form of treatment if she wants. The pleural effusion can recur in future. I have also spoken to patient's son yesterday. Follow oncology recommendations. As discussed with RN. She is discharged today. CHOLO JUAN MD Apr 21, 2021 11:13
--- NOTE | 2021-04-21 20:51 | DS ---
DATE OF DISCHARGE: 04/21/2021 HOSPITAL SUMMARY: An 80-year-old black female with a history of atrial fibrillation and prior history of tobacco use, came to the office with increasing shortness of breath and evidence of right-sided mass with pleural effusion on physical exam. CT scan showed a large pleural effusion with underlying mass effect and also a 3-cm mass on the left lung lower lobe suspicious for tumor as well. There was a large amount of mediastinal lymphadenopathy present along with near collapse of the right middle lobe and lower lobe. CBC and chemistry profile were unremarkable. COVID serology is negative. Pleural fluid was transudative and preliminary reports positive cytology for tumor cells. After diagnostic and therapeutic thoracentesis and 1.5 liters of fluid removed, she felt much better. Her oxygen saturations improved. She was seen by Dr. Mendiola and Dr. Villela saw her as well and at this point she is not considering chemotherapy, but plans to go home with her daughter with home health and hospice at this point. She felt that chemotherapy would be too difficult for her to tolerate given her low functional status. FINAL DIAGNOSES: 1. Right pleural effusion secondary to underlying cancer of the lung ____. 2. Left lower lobe nodule, likely secondary to lung cancer, primary versus metastatic. 3. Chronic kidney disease 3B, stable. 4. Chronic obstructive pulmonary disease. OPERATIONS AND PROCEDURES: Thoracentesis. COMPLICATIONS: None. CONSULTATION: Dr. Villela, Dr. Mitchell, and Dr. Mendiola. DISPOSITION: Home meds resumed. She will use Roxanol as needed for pain and breathlessness and lorazepam as needed for anxiety. Home health and hospice is in place at this time ____ out of hospital DNR signed as the patient did request to be a DNR. Prognosis is terminal at this point. [facility] DR: SANJUANA/osman TID: [id number]
== END 2021-04-21 12:39 | disposition hospice, home (50) | DRG 180 ==
LOC: 5 NORTH 16:16
PROVIDERS: ADMIT Family Medicine; ATTEND Family Medicine
PROC: 0W993ZZ Drainage of Right Pleural Cavity, Percutaneous Approach (ICD-10-PCS; principal; 2021-04-17)
DX: C34.32 Malignant neoplasm of lower lobe, left bronchus or lung (principal); I50.33 Acute on chronic diastolic (congestive) heart failure; J96.01 Acute respiratory failure with hypoxia; I13.0 Hypertensive heart and chronic kidney disease with heart failure and stage 1 through stage 4 chronic kidney disease, or unspecified chronic kidney disease; I42.9 Cardiomyopathy, unspecified; I48.20 Chronic atrial fibrillation, unspecified; J44.1 Chronic obstructive pulmonary disease with (acute) exacerbation; J91.0 Malignant pleural effusion; E11.22 Type 2 diabetes mellitus with diabetic chronic kidney disease; Z66 Do not resuscitate; Z51.5 Encounter for palliative care; Z20.822 Contact with and (suspected) exposure to COVID-19; I25.10 Atherosclerotic heart disease of native coronary artery without angina pectoris; N18.32 Chronic kidney disease, stage 3b; Z79.01 Long term (current) use of anticoagulants; Z82.49 Family history of ischemic heart disease and other diseases of the circulatory system; Z85.41 Personal history of malignant neoplasm of cervix uteri; Z87.891 Personal history of nicotine dependence; Z90.710 Acquired absence of both cervix and uterus; Z91.040 Latex allergy status
CPT/HCPCS: 32555; 36415; 71045; 71250; 80053; 83615; 83735; 83986; 84155; 84157; 85025; 85027; 85610; 87075; 87102; 87116; 87426; 89050; 93005; 93306; 94640; 94760; J2920; J7512; C8929; G0378; J7644

== ENCOUNTER 2021-04-25 14:48 | Inpatient (IN) | payer MEDICARE ==
[~2021-04-25] VITALS: Ht 175.3 cm; Wt 63.7 kg
[~2021-04-25 14:48] MED LIST changes: +AMLO2.5T5 PO; +AMOX500C PO; +APIX2.5T PO; +ATOR10TA60 PO; +METO-239 PO; +SPIR25TA5 PO
--- NOTE | 2021-04-25 15:34 | ED.ADGEN ---
Past Medical History Past Surgical History: , Hip Replacement Smoking Status: Former Smoker General Adult EDM: Chief Complaint: SHORTNESS OF BREATH HPI: HPI: Patient is a 80 year old female brought in by EMS from home for shortness of breath. On EMS arrival she was satting in the mid 80s on room air. Patient was discharged from the hospital about 4 days ago on hospice for a lung mass and pleural effusion. They are in the process of getting her set up for home oxygen. Patient is taking Eliquis for atrial fibrillation. Review of Systems: Review of Systems: All other systems within normal limits except for as noted in the HPI Current Medications: Current Medications Medications (Trade) Dose Ordered Sig/Yaron Start Time Stop Time Status Last Admin Dose Admin Acetaminophen (Tylenol) 650 mg PRN Q4HRS PRN 04/25/21 17:45 04/26/21 17:44 Morphine Sulfate (Morphine Sulfate) 4 mg PRN Q2HR PRN 04/25/21 17:45 04/26/21 17:44 Ondansetron HCl (Zofran) 4 mg PRN Q8HRS PRN 04/25/21 17:45 04/26/21 17:44 Sodium Chloride 1,000 ml @ 100 mls/hr Q10H 04/25/21 17:45 04/26/21 17:44 Allergies: Allergies: Allergies Coded Allergies Type Severity Reaction Last Updated Verified latex Allergy Severe Rash 09/15/14 Yes Physical Exam: PE: Constitutional: Well developed, well nourished, no acute distress, non-toxic appearance. [] HENT: Normocephalic, atraumatic, bilateral external ears normal, nose normal. [] Eyes: PERRLA, conjunctiva normal, no discharge. [] Neck: No rigidity, supple, no stridor. [] Cardiovascular: Regular rate and rhythm, brisk cap refill [] Lungs & Thorax: Mild tachypnea and accessory muscle use, breath sounds clear on left, diminished on right Abdomen: Soft, nondistended. Skin: Warm, dry, no erythema, no rash. [] Back: Unremarkable Extremities: No deformities, range of motion grossly intact, no lower extremity edema [] Neurologic: Alert and oriented X 3, no focal deficits noted. [] Psychologic: Affect normal, judgement normal, mood normal. [] Current Patient Data: Labs: Laboratory Tests Test 04/25/21 15:10 White Blood Count 11.1 x10^3/uL (4.0-11.0) H Red Blood Count 5.00 x10^6/uL (3.50-5.40) Hemoglobin 15.3 g/dL (12.0-15.5) Hematocrit 47.7 % (36.0-47.0) H Mean Corpuscular Volume 95 fL (79-100) Mean Corpuscular Hemoglobin 31 pg (25-35) Mean Corpuscular Hemoglobin Concent 32 g/dL (31-37) Red Cell Distribution Width 14.3 % (11.5-14.5) Platelet Count 248 x10^3/uL (140-400) Neutrophils (%) (Auto) 85 % (31-73) H Lymphocytes (%) (Auto) 6 % (24-48) L Monocytes (%) (Auto) 8 % (0-9) Eosinophils (%) (Auto) 0 % (0-3) Basophils (%) (Auto) 0 % (0-3) Neutrophils # (Auto) 9.4 x10^3/uL (1.8-7.7) H Lymphocytes # (Auto) 0.7 x10^3/uL (1.0-4.8) L Monocytes # (Auto) 0.9 x10^3/uL (0.0-1.1) Eosinophils # (Auto) 0.0 x10^3/uL (0.0-0.7) Basophils # (Auto) 0.0 x10^3/uL (0.0-0.2) Sodium Level 132 mmol/L (136-145) L Potassium Level 4.6 mmol/L (3.5-5.1) Chloride Level 96 mmol/L (98-107) L Carbon Dioxide Level 20 mmol/L (21-32) L Anion Gap 16 (6-14) H Blood Urea Nitrogen 75 mg/dL (7-20) H Creatinine 1.8 mg/dL (0.6-1.0) H Estimated GFR (Cockcroft-Gault) 32.6 BUN/Creatinine Ratio 42 (6-20) H Glucose Level 275 mg/dL (70-99) H Lactic Acid Level 5.2 mmol/L (0.4-2.0) *H Calcium Level 9.6 mg/dL (8.5-10.1) Phosphorus Level 5.5 mg/dL (2.6-4.7) H Magnesium Level 2.9 mg/dL (1.8-2.4) H Total Bilirubin 1.0 mg/dL (0.2-1.0) Aspartate Amino Transferase (AST) 42 U/L (15-37) H Alanine Aminotransferase (ALT) 45 U/L (14-59) Alkaline Phosphatase 93 U/L (46-116) Myoglobin 459 ng/mL (9-82) H Troponin I High Sensitivity 48 ng/L (4-50) ET-Ovu-A-Type Natriuretic Peptide 3156 pg/mL (0-449) H Total Protein 7.3 g/dL (6.4-8.2) Albumin 2.7 g/dL (3.4-5.0) L Albumin/Globulin Ratio 0.6 (1.0-1.7) L Laboratory Tests 04/25/21 15:10 Laboratory Tests 04/25/21 15:10 Vital Signs: Vital Signs Date Time Temp Pulse Resp B/P (MAP) Pulse Ox O2 Delivery O2 Flow Rate FiO2 04/25/21 16:24 97 BiPAP/CPAP 04/25/21 14:50 96.8 145 30 157/86 (109) 10.0 96.8 EKG: EKG: [] Heart Score: C/O Chest Pain: No Risk Factors: Risk Factors: DM, Current or recent (<one month) smoker, HTN, HLP, family history of CAD, obesity. Risk Scores: Score 0 - 3: 2.5% MACE over next 6 weeks - Discharge Home Score 4 - 6: 20.3% MACE over next 6 weeks - Admit for Clinical Observation Score 7 - 10: 72.7% MACE over next 6 weeks - Early Invasive Strategies Radiology/Procedures: Radiology/Procedures: [facility] [address] [place] [address] IMAGING REPORT Signed PATIENT: CALVIN RASHEED ACCOUNT: [id number] : 1940 LOCATION: ER AGE: 80 SEX: F EXAM STATUS: PRE ER ORD. PHYSICIAN: YAIR MONTOYA MD REASON: hypoxic PROCEDURE: CHEST AP ONLY AP chest. HISTORY: Hypoxic AP view was taken of the chest. There is a large right pleural effusion similar to the prior study from April 15. There is mild atelectasis or infiltrate in the left lung base. There is thoracolumbar scoliosis. IMPRESSION: 1. Large right pleural effusion similar to the recent study. Electronically signed by: Ivan Vega MD (04/25/2021 3:52 PM) [facility] DICTATED and SIGNED BY: IVAN VEGA MD DATE: 04/25/21 1551 [] Course & Med Decision Making: Course & Med Decision Making Pertinent Labs and Imaging studies reviewed. (See chart for details) [] Dragon Disclaimer: Dragon Disclaimer: This electronic medical record was generated, in whole or in part, using a voice recognition dictation system. Departure Departure Impression: Primary Impression: Lung cancer Additional Impression: Hypoxia Disposition: ADMITTED INPATIENT Admitting Physician: Jonny Quiroz Condition: GUARDED Referrals: JONNY QUIROZ MD (PCP) Problem Qualifiers YAIR MONTOYA MD Apr 25, 2021 15:34
[2021-04-25 15:52] LABS: BASO % 0 % (0-3); EOS % 0 % (0-3); HEMATOCRIT 47.7 % (36.0-47.0); HEMOGLOBIN 15.3 g/dL (12.0-15.5); LYMPH # 0.7 x10^3/uL (1.0-4.8); LYMPH % 6 % (24-48); MEAN CORPUSCULAR HEMOGLOBIN 31 pg (25-35); MEAN CORPUSCULAR HGB CONC 32 g/dL (31-37); MEAN CORPUSCULAR VOLUME 95 fL (79-100); MONO # 0.9 x10^3/uL (0.0-1.1); MONO % 8 % (0-9); NEUT # 9.4 x10^3/uL (1.8-7.7); NEUT % 85 % (31-73); PLATELET COUNT 248 x10^3/uL (140-400); RED CELL DISTRIBUTION WIDTH 14.3 % (11.5-14.5); WHITE BLOOD COUNT 11.1 x10^3/uL (4.0-11.0)
--- NOTE | 2021-04-25 15:54 | RAD ---
AP chest. HISTORY: Hypoxic AP view was taken of the chest. There is a large right pleural effusion similar to the prior study fr om April 15. There is mild atelectasis or infiltrate in the left lung base. There is thoracolumbar sc oliosis. IMPRESSION: 1. Large right pleural effusion similar to the recent study. Electronically signed by: Ivan Vega MD (04/25/2021 3:52 PM) [facility]
[2021-04-25 16:10] LABS: CALCIUM 9.6 mg/dL (8.5-10.1); CREATININE 1.8 mg/dL (0.6-1.0); GFR 32.6; POTASSIUM 4.6 mmol/L (3.5-5.1)
[2021-04-25 16:25] LABS: ALBUMIN 2.7 g/dL (3.4-5.0); ALBUMIN/GLOBULIN RATIO 0.6 (1.0-1.7); MAGNESIUM 2.9 mg/dL (1.8-2.4); PHOSPHORUS 5.5 mg/dL (2.6-4.7); TOTAL PROTEIN 7.3 g/dL (6.4-8.2)
[2021-04-25] MEDS ORDERED: IV NORMAL SALINE 500ML BAG 500 ML IV ONE (17:15)
[2021-04-25] MEDS: IV NORMAL SALINE 1000ML BAG 1,000 ML IV SCH (17:45)
[2021-04-25] MEDS ORDERED: ACETAMINOPHEN 325 MG TABLET. PO PRN (17:45)
[2021-04-25] MEDS ORDERED: ONDANSETRON PF 4 MG/2 ML VIAL. IVP PRN (17:45)
[2021-04-25 18:42] LABS: PROTHROMBIN TIME PATIENT 16.4 SEC (11.7-14.0)
[2021-04-25 19:17] LABS: D-DIMER 2.16 ug/mlFEU (0.00-0.50)
--- NOTE | 2021-04-25 20:20 | NUR ---
Pt arrived to room 430 at 2014. Pt lethargic and SOB on 4L O2. RT in room to set up BiPap for pt. Due to pt breathing, unable to do some admission questions. Completed what I could in chart. Will continue to monitor.
[2021-04-25 20:25] VITALS: BP 131/69
[2021-04-25] MEDS: MORPHINE SULFATE 4 MG/ML INJ. IVP PRN (21:00)
[2021-04-25 23:43] LABS: INFLUENZA A PATIENT NEGATIVE (NEGATIVE); INFLUENZA B PATIENT NEGATIVE (NEGATIVE)
[2021-04-26] MEDS ORDERED: INFLUENZA VAX SCREEN BY RX. MC ONE
[2021-04-26 01:04] LABS: BILIRUBIN,URINE NEGATIVE (NEG); CLARITY,URINE CLEAR; COLOR,URINE YELLOW; NITRITE,URINE NEGATIVE (NEG); PH,URINE 5.5 (<5.0-8.0); PROTEIN,URINE 30 mg/dL (NEG-TRACE); UROBILINOGEN,URINE 0.2 mg/dL (0.2 mg/dL)
[2021-04-26 01:05] LABS: BACTERIA,URINE 0 /HPF (0-FEW); RBC,URINE OCC /HPF (0-2); WBC,URINE OCC /HPF (0-4)
[2021-04-26 01:06] LABS: HYALINE CASTS, URINE MODERATE /HPF
[2021-04-26] MEDS: MORPHINE SULFATE 4 MG/ML INJ. IVP PRN ×4 (01:25→17:11)
[2021-04-26] MEDS: IV NORMAL SALINE 1000ML BAG 1,000 ML IV SCH ×2 (03:45→11:17)
[2021-04-26 06:04] LABS: BASO % 0 % (0-3); EOS % 0 % (0-3); HEMATOCRIT 44.7 % (36.0-47.0); HEMOGLOBIN 14.5 g/dL (12.0-15.5); LYMPH # 0.7 x10^3/uL (1.0-4.8); LYMPH % 7 % (24-48); MEAN CORPUSCULAR HEMOGLOBIN 31 pg (25-35); MEAN CORPUSCULAR HGB CONC 32 g/dL (31-37); MEAN CORPUSCULAR VOLUME 94 fL (79-100); MONO # 1.5 x10^3/uL (0.0-1.1); MONO % 13 % (0-9); NEUT # 8.9 x10^3/uL (1.8-7.7); NEUT % 80 % (31-73); PLATELET COUNT 222 x10^3/uL (140-400); RED BLOOD COUNT 4.74 x10^6/uL (3.50-5.40); RED CELL DISTRIBUTION WIDTH 14.4 % (11.5-14.5); WHITE BLOOD COUNT 11.1 x10^3/uL (4.0-11.0)
[2021-04-26 06:09] LABS: CALCIUM 9.2 mg/dL (8.5-10.1); CREATININE 1.8 mg/dL (0.6-1.0); GFR 32.6
[2021-04-26 07:00] VITALS: BP 121/69
[2021-04-26 08:09] LABS: BASE EXCESS ABG -5 mmol/L (-3-3); HCO3 ABG 19 mmol/L (21-28); PCO2 ABG 30 mmHg (35-46); PO2 ABG 70 mmHg (65-108); SAT O2 ABG 92 % (92-99)
[2021-04-26 08:11] LABS: FIO2 ABG 40% 14/6 R=12
--- NOTE | 2021-04-26 08:23 | PDOC ---
Provider Note Date of Service: DATE: 04/26/21 TIME: 08:21 Provider Note [id number] Justifications for Admission Other Justification JONNY QUIROZ MD Apr 26, 2021 08:23
[2021-04-26] MEDS ORDERED: MORPHINE SULFATE 20 MG/ML CONC SOLUTION. SL PRN (08:30)
--- NOTE | 2021-04-26 08:46 | HP ---
DATE OF SERVICE: 04/26/2021 ADMIT DATE: 04/25/2021 CHIEF COMPLAINT: Shortness of breath. HISTORY OF PRESENT ILLNESS: An 80-year-old black female with known stage non-small cell cancer of the right lung and probable the left lung was well with malignant right pleural effusion. She had a large amount of fluid removed from the right chest, which cytology proved to show the cancer diagnosis and after assessment by the oncologist, it was felt that her functional status was inadequate to tolerate aggressive chemotherapy. She has gone home with hospice and comfort care measures as a DNR, but came back in because of increasing shortness of breath after the need for oxygen developed. She is on BiPAP, now sleeping after morphine. PAST MEDICAL HISTORY: Well documented in the old record. ALLERGIES: No known drug allergies. SOCIAL HISTORY: She is . Nonsmoker for many years. Lives at home. Nondrinker. FAMILY HISTORY: Unremarkable. REVIEW OF SYSTEMS: Unremarkable. OBJECTIVE: ENT: She is on BiPAP. Rest is unremarkable. NECK: No masses, nodes or bruits. LUNGS: Decreased breath sounds in the entire right chest. No tachypnea at rest. CARDIOVASCULAR: Regular rate, no murmur. ABDOMEN: Benign. EXTREMITIES: Unremarkable, no edema. ASSESSMENT: Aggressive malignant right pleural effusion secondary to non-small cell cancer of the right lung, likely stage IV. PLAN: Comfort care. Morphine and home oxygen if she is able to survive long enough to go home with hospice. [place] DR: Pavithra TID: [id number]
[2021-04-26] MEDS: METOPROLOL SUCC 24HR ER 25 MG TAB.ER.24H. PO SCH (08:47)
[2021-04-26] MEDS ORDERED: FLU VACC QUAD 21-22 (6MOS+) PF 0.5 ML SYRINGE. VAX IM ONE (09:00)
--- NOTE | 2021-04-26 10:44 | EKG ---
[facility] [address] [place] [address] Test Date: 2021-04-26 Test Time: 15:55:46 Pat Name: CALVIN RASHEED Department: Room: [facility] Gender: F Health Navigator: : 1940 Requested By: YAIR MONTOYA Order Number: [id number] Reading MD: Jaxon Mitchell MD Measurements Intervals [place] Rate: 131 P: 0 LA: 122 QRS: 18 QRSD: 80 T: 173 QT: 304 QTc: 454 Interpretive Statements Atrial fibrillation with rapid ventricular spots Probable LVH Cannot rule out lateral ischemia Electronically Signed On 04-29-2021 17:57:25 CDT by Jaxon Mitchell MD
--- NOTE | 2021-04-26 11:23 | NUR ---
SW following. Discussed with RN, pt from home with family, continuous bipap, regular diet, rapid COVID-19 negative. SW spoke with pt's son, Jose L - they do not want hospice and are waiting for a follow up with oncology. SW will continue to follow.
[2021-04-26 15:00] VITALS: BP 108/63
--- NOTE | 2021-04-26 17:35 | NUR ---
RT removed BiPap earlier in shift and applied 5L NC to patient. At approximately 1715 patient SpO2 was 60-70%. RT paged and BiPap re-applied, patient Spo2 is 100%. Addendum: 04/26/21 at 1747 by CARMELINA MAHER RN Notified RT Heavenly that bipap was re-applied to patient.
[2021-04-26 19:25] VITALS: BP 123/77
[2021-04-26] MEDS: MORPHINE SULFATE 4 MG/ML INJ. IV PRN (22:17)
[2021-04-26 23:10] VITALS: BP 117/72
[2021-04-27] VITALS (7 sets, daily range): BP systolic 116–127; BP diastolic 60–76
--- NOTE | 2021-04-27 00:15 | NUR ---
Patient is lethargic. Not responding to verbal stimuli. Thrashing around in bed. Patient has disconnected tubing from bipap. Tubing reconnected several times over last few hours. Bipap repositioned on patient's face. Patient trying to remove mask. Patient repositioned in bed and HOB elevated. Patient calmed down within a few minutes. Patient not aware of her surroundings.
[2021-04-27] MEDS: MORPHINE SULFATE 4 MG/ML INJ. IV PRN ×4 (00:45→12:52)
[2021-04-27] MEDS: METOPROLOL SUCC 24HR ER 25 MG TAB.ER.24H. PO SCH (07:07)
--- NOTE | 2021-04-27 08:16 | PDOC ---
Provider Note Date of Service: DATE: 04/27/21 TIME: 08:12 Provider Note continued bipap re R pleural effusion, labs same, no temp- using iv ms q 3-4 hr- sleeping now after ms- no family present, onco consult as requested by family- i can be reached anytime to discuss w/ family, she is preterminal re her effusion Justifications for Admission Other Justification JONNY QUIROZ MD Apr 27, 2021 08:16
--- NOTE | 2021-04-27 16:19 | CONS ---
DATE OF CONSULTATION: 04/27/2021 PULMONARY CONSULTATION ATTENDING PHYSICIAN: Kwan Hodge MD. REASON FOR CONSULTATION: Respiratory failure, recurrent malignant pleural effusion. HISTORY OF PRESENT ILLNESS: The patient is an 80-year-old female with a BMI of 20. She is known to us from her previous admission when she presented with acute respiratory failure secondary to large malignant right pleural effusion. She has underlying COPD as well. The patient has a 46-zqto-jjtf tobacco history. The patient underwent thoracentesis and was found to have a malignant pleural effusion consistent with adenocarcinoma. She also had a mass in the left lower lung as well. At that time, discussion was made with the patient and her son. She was subsequently discharged home with the option of hospice versus chemo. She was brought into the hospital with increasing shortness of breath. The patient was noted to be hypoxic. She is currently on BiPAP. Arterial blood gases obtained yesterday showed a pH of 7.41, pCO2 of 30 and a pO2 of 70 on 40% FiO2. The patient got morphine 1 mg and I was unable to ask much questions from the patient. She did open her eyes, but would not answer. I was able to get hold of her daughter, Dali, in [place] and talked to her about her condition. She underwent a chest x-ray, which shows a large right-sided pleural effusion. Consultation requested for further evaluation and management. The patient has been seen by oncologist. The plan was to start her on oral chemo agent, but has not been initiated yet. She is a DNR. PAST MEDICAL HISTORY: Significant for history of COPD. She has a 70-keqh-ubxb tobacco use. History of atrial fibrillation. History of diastolic CHF. She used to be on Eliquis, but not seen on it during this admission. History of diabetes, hypertension, coronary artery disease, scoliosis, osteoporosis, cervical cancer and left breast lumpectomy, which was benign. PAST SURGICAL HISTORY: As discussed above. ALLERGIES: None. MEDICATIONS: Reviewed as listed in the [facility]. SOCIAL HISTORY: A 30-slez-hbya tobacco use. FAMILY HISTORY: Hypertension. REVIEW OF SYSTEMS: Unable to obtain due to her condition. PHYSICAL EXAMINATION: VITAL SIGNS: Reviewed. Pulse ox 92% on current BiPAP at 40% FiO2. Blood pressure stable. Afebrile. NECK: Supple. LUNGS: With diminished breath sounds, right lung. CARDIOVASCULAR: With a regular rate. ABDOMEN: Soft, nontender. EXTREMITIES: With trace pitting edema. LABORATORY DATA: Reviewed. Her influenza screen negative. COVID negative. BUN 88 and a creatinine of 1.8. She is getting IV fluids. Lactic acid was 5.2, now 4.0. Sodium 135. INR is 1.4. White cell count 11.1, hemoglobin 14.5 and platelets are 222. IMPRESSION: 1. Acute hypoxic respiratory failure secondary to recurrent large right-sided malignant pleural effusion. This is a patient who was diagnosed with metastatic adenocarcinoma during her recent hospitalization from thoracentesis. She also had a mass in the left lower lung as well. 2. Underlying suspected severe chronic obstructive pulmonary disease. Qdktl-ahjk-yctt tobaccoism, quit 2 years ago. 3. Acute kidney injury. 4. Lactic acidosis from increased work of breathing. 5. History of cervical cancer. 6. History of lumpectomy, which was benign. 7. Abnormal D-dimer, which is a nonspecific finding. RECOMMENDATIONS: 1. The patient is currently on BiPAP. Her ventilation status is stable. At this point, I would recommend to avoid further morphine. Once she is more awake, we will discontinue BiPAP and try nasal cannula or Ventimask. 2. I have discussed in detail with the patient's daughter, Dali. Since they want to pursue treatment option with oral chemo, she would benefit from a PleurX catheter. I did tell the daughter that this will be a bridge and will provide more of a palliative care while hoping the chemo to work. 3. We will consult Interventional Radiology and order a PleurX catheter. 4. Avoid further morphine. 5. Follow Oncology recommendations. 6. Discussed with RN and discussed with the patient's daughter, Carla Dali. Chart reviewed, imaging studies reviewed. Total critical care time [address]: Kike TID: [id number]
--- NOTE | 2021-04-28 00:45 | NUR ---
Patient continues to be restless and thrashing. Bipap tubing reconnected again. Patient remains lethargic.
--- NOTE | 2021-04-28 00:55 | NUR ---
Patient's bipap alarming again stating low respirations. Mask readjusted. Face cool to touch. Unable to obtain heart rate or blood pressure or pulse ox saturation.
--- NOTE | 2021-04-28 01:00 | NUR ---
Patient pronounced by 2 RN's. See Pronouncement of form. 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
--- NOTE | 2021-04-28 01:35 | NUR ---
Dr. Kwan Hodge notified of patient's . Dr Mendiola notified of patient's . Patient's son Jose L Bello notified of patient's in person by this RN. Family at bedside.
--- NOTE | 2021-04-28 02:00 | NUR ---
See record for further information. Family still with patient at this time. Patient's daughter Dali Whittington notified of by by Jose L Bello.
--- NOTE | 2021-04-28 04:18 | NUR ---
Body taken to [facility] notified.
--- NOTE | 2021-04-28 07:52 | PDOC ---
Provider Note Date of Service: DATE: 04/28/21 TIME: 07:51 Provider Note [id number] Justifications for Admission Other Justification JONNY QUIROZ MD Apr 28, 2021 07:52
--- NOTE | 2021-04-28 21:04 | DS ---
DATE OF DISCHARGE: 04/28/2021 SUMMARY HOSPITAL SUMMARY: An 80-year-old black female with a large right malignant pleural effusion secondary to adenocarcinoma found in the cells of the pleural aspirate with a mass in the left lung as well. She was on hospice in the home and came in with increasing respiratory distress. X-ray showed complete opacity of the right chest and laboratory studies were consistent with dehydration from poor oral intake. Lactic acid was elevated as well, but she did not have metabolic acidosis as she was compensated by tachypnea. She required intravenous morphine for comfort care. Dr. Mendiola and Dr. Mitchell was consulted and Dr. Mendiola recommended a pleural catheter because of the persistence of fluid and the discomfort. The patient early on the morning of 04/28 and family did not request any postmortem examination. FINAL DIAGNOSES: 1. Adenocarcinoma of the lung stage 3 with progressive, recurrent right malignant pleural effusion. 2. Prerenal azotemia, metabolic acidosis from lactic acidosis. OPERATIONS, PROCEDURES AND COMPLICATIONS: None. CONSULTATIONS: Dr. Mendiola and Dr. Mitchell. DISPOSITION: The patient was released to the home at family request. SANJUANA/MIGUEL/REGINA DR: SANJUANA/osman TID: [id number]
== END 2021-04-28 04:20 | DRG 180 ==
LOC: ER 14:48 → 4 NORTH 17:00
PROVIDERS: ADMIT Family Medicine; ATTEND Family Medicine
PROC: 5A09357 Assistance with Respiratory Ventilation, Less than 24 Consecutive Hours, Continuous Positive Airway Pressure (ICD-10-PCS; principal; 2021-04-25)
PROC: 5A09357 Assistance with Respiratory Ventilation, Less than 24 Consecutive Hours, Continuous Positive Airway Pressure (ICD-10-PCS; 2021-04-26)
PROC: 5A09357 Assistance with Respiratory Ventilation, Less than 24 Consecutive Hours, Continuous Positive Airway Pressure (ICD-10-PCS; 2021-04-27)
DX: C34.91 Malignant neoplasm of unspecified part of right bronchus or lung (principal); J96.01 Acute respiratory failure with hypoxia; I50.32 Chronic diastolic (congestive) heart failure; J91.0 Malignant pleural effusion; J98.11 Atelectasis; N17.9 Acute kidney failure, unspecified; Z51.5 Encounter for palliative care; Z66 Do not resuscitate; Z20.822 Contact with and (suspected) exposure to COVID-19; E11.9 Type 2 diabetes mellitus without complications; I11.0 Hypertensive heart disease with heart failure; I25.10 Atherosclerotic heart disease of native coronary artery without angina pectoris; Z96.649 Presence of unspecified artificial hip joint; E86.0 Dehydration; I48.91 Unspecified atrial fibrillation; J44.9 Chronic obstructive pulmonary disease, unspecified; M41.9 Scoliosis, unspecified; Z82.49 Family history of ischemic heart disease and other diseases of the circulatory system; Z85.41 Personal history of malignant neoplasm of cervix uteri; Z87.891 Personal history of nicotine dependence; Z91.040 Latex allergy status
CPT/HCPCS: 36415; 36600; 71045; 80048; 80053; 81001; 82805; 83605; 83735; 83874; 83880; 84100; 84484; 85025; 85379; 85610; 87428; 93005; 94660; J2270; J7030; U0003; 99285-25; G0378